=== PATIENT | female | born 1940 | race Caucasian/White ===

== ENCOUNTER → 2020-02-05 12:58 | Outpatient (REF) | payer MEDICARE, BC, SELFPAY ==
--- NOTE | 2020-02-05 13:00 | CA_ITS ---
Transthoracic Echocardiogram Patient (Last, First, Middle): Lisbeth Ruby A Gender: Female Date of : 1940 Age: 79 Procedure Date: 02/05/2020 Procedure Type: Transthoracic Echocardiogram Location: OP Height: 165.1 cm Weight: 96.16 kg BSA: 2.03 m2 Heart Rate: bpm BP: 122 / 98 mmHg City Distribution Clerk: JORGE LUIS Referring MD: Peng Lr MD Lighter: Peng Lr MD Symptoms: [facility] Study Quality: Fair ECG Rhythm: Atrial Fibrillation Conclusions: - 1. Normal LV systolic function with mild LVH 2. Moderate biatrial enlargement 3. Normal cardiac valvular Doppler 4. Normal RV systolic pressure 5. No gross pericardial effusion Findings Left Ventricle Normal left ventricular size and systolic function. There is mildly increased left ventricular wall thickness. The visually estimated ejection fraction is between 55-60%. Diastolic function is indeterminate on the basis of available data. Right Ventricle The right ventricle was not well visualized. Atria The left atrium is moderately dilated. Interatrial shunt cannot be excluded. The right atrium is moderately dilated. Aortic Valve The aortic valve was not well visualized. There is no aortic valve stenosis. There is no aortic valve regurgitation. Mitral Valve There is mild anterior and posterior mitral leaflet thickening. There is mild mitral valve regurgitation. There is no mitral valve stenosis. Pulmonic Valve The pulmonic valve was not well visualized. Tricuspid Valve Likely normal tricuspid valve structure and function. There is mild tricuspid valve regurgitation. The right ventricular systolic pressure is normal. The right ventricular systolic pressure is 33 mmHg. Normal right atrial pressure. There is no evidence of pulmonary hypertension. Great Vessels All visible segments of the aorta are normal in size. The pulmonary artery was not well visualized. Venous The inferior vena cava is normal in size and collapses greater than 50% with inspiration. Pericardium/Pleural There is no evidence of pericardial effusion. Prior Study Comparison No significant change compared to prior study dated: 08/29/2018. Measurements 2D Linear Measurements IVSd: 1.04 0.6-0.9/0.6-1.0 cm LVIDd: 4.17 3.9-5.3/4.2-5.9 cm LVIDd Index: 2.05 2.4-3.2/2.2-3.1 cm/m2 LVIDs: 2.98 2.0-3.6 cm LVPWd: 1.18 0.7-1.1 cm Ao Root: 2.80 2.1-3.5 cm LA Diam: 4.30 2.7-3.8/3.0-4.0 cm LAIDs Index: 2.12 1.5-2.3 cm/m2 LV Mass: 195.94 67-162/88-224 g LV Mass Index: 96.52 43-95/49-115 g/m2 LVOT Diam: 2.10 3.0+(-)1.3 cm Mitral Valve MV Pk E: 1.11 MV Decel Time: 100.00 E'Lateral: 11.80 E'Medial: 9.38 E/E' Med: 11.80 E/E' Lat: 9.40 PHT: 175.00 MVA PHT: 1.26 Decel [place]: 1.84 Aortic Valve AoV Pk Aristeo: 1.21 AoV Pk Grad: 6.00 LVOT LVOT Pk Aristeo: 0.83 LVOT Mn Aristeo: 0.54 LVOT VTI: 0.16 LVOT Pk Grad: 3.00 LVOT Mn Grad: 1.00 LVOT Diam: 2.10 LVOT Area: 3.46 Diastolic Function MV Pk E: 1.11 E'Medial: 9.38 E/E' Med: 11.80 E' Laterial: 11.80 E/E' Lat: 9.40 Tricuspid Valve TR Pk Aristeo: 2.76 TR Pk Grad: 30.00 RA Press: 3.00 RVSP: 33.00 Great Vessels Aorta Ao Root-2D: 2.80 2.0-3.7 cm Ao Asc: 3.60 2.1-3.4 cm Updated in Other Vendor System with Status of Final Peng Lr MD electronically signed on 02/06/2020 3:08:28 PM with status of Final
== END ==
LOC: HO.CARD 12:58
PROVIDERS: PCP Internal Medicine; Visit Provider Internal Medicine Cardiovascular Disease
DX: I11.0 Hypertensive heart disease with heart failure (principal); I50.30 Unspecified diastolic (congestive) heart failure; I48.19 Other persistent atrial fibrillation
CPT/HCPCS: 93306

== ENCOUNTER 2020-05-21 08:04 | Outpatient (REF) | payer MEDICARE, BC, SELFPAY ==
[2020-05-21 10:19] LABS: MANUAL DIFF FLAG NO
[2020-05-21 10:24] LABS: Basophils Absolute Auto 0.1 X10*3/uL (0.0-0.2); Basophils Percent Auto 0.6 % (0-2); Eosinophils Absolute Auto 0.2 X10*3/uL (0.0-0.4); Hematocrit 43.6 % (37-47); Hemoglobin 13.9 g/dl (12.0-16.0); Imm Gran Abs Auto 0.04 X10*3/uL (0.00-0.03); Imm Gran Pct Auto 0.4 % (0.0-0.4); Lymphocytes Absolute Auto 2.2 X10*3/uL (1.2-4.9); Lymphocytes Percent Auto 23.2 % (20-40); Mean Corpuscular HGB Conc 31.9 g/dl (31.0-35.0); Mean Corpuscular Hemoglobin 30.2 pg (27.0-33.0); Mean Corpuscular Volume 94.8 fL (80-98); Mean Platelet Volume 12.9 fL (9.4-12.3); Monocytes Absolute Auto 0.7 X10*3/uL (0.1-1.2); Monocytes Percent Auto 7.7 % (2-11); Neutrophils Absolute Auto 6.2 X10*3/uL (2.0-8.3); Neutrophils Percent Auto 66.1 % (45-73); Platelet Count 258 X10*3/uL (160-400); White Blood Count 9.5 X10*3/uL (4.8-10.8)
[2020-05-21 10:48] LABS: Alanine Aminotransferase 19 U/L (0-31); Albumin Level 4.1 g/dL (3.5-5.0); Alkaline Phosphatase 79 U/L (39-117); Anion Gap 14 (12-20); Aspartate Amino Transferase 18 U/L (5-31); Bilirubin Total 0.6 mg/dL (0.0-1.0); Blood Urea Nitrogen 23 mg/dL (9-16); Calcium 9.1 mg/dL (8.4-10.2); Carbon Dioxide 30 mmol/L (22-29); Chloride 102 mmol/L (96-108); Cholesterol 214 mg/dL; Estimated Glomerular Filt Rate 52; Glucose Fasting 121 mg/dL (60-99); HDL Cholesterol 71 mg/dL; LDL Cholesterol Calculated 129 mg/dl; Potassium 4.6 mmol/l (3.3-5.1); Sodium 141 mmol/L (135-145); Total Protein 6.9 g/dL (6.5-8.0); Triglycerides 70 mg/dL
[2020-05-21 10:54] LABS: Estimated Average Glucose 117 mg/dL; Hemoglobin A1c % 5.7 %
[2020-05-21 11:11] LABS: Thyroid Stimulating Hormone 1.37 uIU/mL (0.32-4.0)
== END 2020-05-21 08:05 | disposition home or self-care (01) ==
LOC: HO.10HDL 08:04
PROVIDERS: Visit Provider Internal Medicine
DX: I10 Essential (primary) hypertension (principal); I48.91 Unspecified atrial fibrillation; R73.01 Impaired fasting glucose; Z68.36 Body mass index [BMI] 36.0-36.9, adult
CPT/HCPCS: 36415; 80053; 80061; 83036; 84443; 85025

== ENCOUNTER → 2020-06-15 13:05 | Outpatient (BNVA) | payer MEDICARE, BC, SELFPAY | PROVIDERS: PCP Internal Medicine; Visit Provider Internal Medicine Cardiovascular Disease | DX: I50.32 Chronic diastolic (congestive) heart failure (principal); I48.20 Chronic atrial fibrillation, unspecified | CPT/HCPCS: Q3014 ==

== ENCOUNTER 2020-09-16 08:08 | Outpatient (REF) | payer MEDICARE, BC, SELFPAY ==
[2020-09-16 10:23] LABS: MANUAL DIFF FLAG NO
[2020-09-16 10:28] LABS: Basophils Absolute Auto 0.1 X10*3/uL (0.0-0.2); Basophils Percent Auto 0.8 % (0-2); Eosinophils Absolute Auto 0.2 X10*3/uL (0.0-0.4); Eosinophils Percent Auto 2.5 % (0-4); Hematocrit 41.2 % (37-47); Imm Gran Abs Auto 0.02 X10*3/uL (0.00-0.03); Imm Gran Pct Auto 0.3 % (0.0-0.4); Lymphocytes Absolute Auto 1.9 X10*3/uL (1.2-4.9); Lymphocytes Percent Auto 23.2 % (20-40); Mean Corpuscular HGB Conc 31.6 g/dl (31.0-35.0); Mean Corpuscular Hemoglobin 29.5 pg (27.0-33.0); Mean Corpuscular Volume 93.4 fL (80-98); Mean Platelet Volume 12.8 fL (9.4-12.3); Monocytes Absolute Auto 0.7 X10*3/uL (0.1-1.2); Monocytes Percent Auto 8.2 % (2-11); Neutrophils Absolute Auto 5.2 X10*3/uL (2.0-8.3); Platelet Count 236 X10*3/uL (160-400); Red Blood Count 4.41 X10*6/uL (4.20-5.50); Red Cell Distribution Width 14.6 % (11.0-16.0)
[2020-09-16 11:04] LABS: Estimated Average Glucose 123 mg/dL; Hemoglobin A1c % 5.9 %
[2020-09-16 11:07] LABS: Alanine Aminotransferase 23 U/L (0-31); Alkaline Phosphatase 83 U/L (39-117); Anion Gap 12 (12-20); Aspartate Amino Transferase 21 U/L (5-31); Bilirubin Total 0.6 mg/dL (0.0-1.0); Blood Urea Nitrogen 23 mg/dL (9-16); Calcium 9.5 mg/dL (8.4-10.2); Carbon Dioxide 29 mmol/L (22-29); Chloride 104 mmol/L (96-108); Estimated Glomerular Filt Rate 53; Glucose Fasting 114 mg/dL (60-99); Potassium 4.8 mmol/L (3.3-5.1); Sodium 140 mmol/L (135-145); Total Protein 6.6 g/dL (6.5-8.0)
[2020-09-16 11:08] LABS: Thyroid Stimulating Hormone 0.86 uIU/mL (0.32-4.0)
== END 2020-09-16 08:09 | disposition home or self-care (01) ==
LOC: HO.10HDL 08:08
PROVIDERS: Visit Provider Internal Medicine
DX: E78.00 Pure hypercholesterolemia, unspecified (principal); I10 Essential (primary) hypertension; I48.91 Unspecified atrial fibrillation; R73.01 Impaired fasting glucose; Z79.01 Long term (current) use of anticoagulants; Z86.010 Personal history of colon polyps
CPT/HCPCS: 36415; 80053; 83036; 84443; 85025

== ENCOUNTER → 2020-12-16 12:38 | Outpatient (REF) | payer MEDICARE, BC, SELFPAY ==
--- NOTE | 2020-12-16 12:41 | CA_ITS ---
Transthoracic Echocardiogram Patient (Last, First, Middle): Lisbeth Ruby A Gender: Female Date of : 1940 Age: 80 Procedure Date: 12/16/2020 Procedure Type: Transthoracic Echocardiogram Location: OP Height: 167.64 cm Weight: 97.52 kg BSA: 2.06 m2 Heart Rate: bpm BP: 129 / 65 mmHg New Home Sales Consultant: ASHVIN Mtz MD: Peng Lr MD Chicken Boner: Peng Lr MD Symptoms: I48.20 - Chronic atrial fibrillation, unspecified Study Quality: Fair ECG Rhythm: Atrial Fibrillation Conclusions: - 1. Low normal LV systolic function with LVEF of 50-55% 2. Moderate biatrial enlargement 3. Normal cardiac valvular Doppler next 4. Normal RV systolic pressure 5. No pericardial effusion Findings Left Ventricle Normal left ventricular cavity size. There is normal left ventricular wall thickness. The left ventricular systolic function is low normal. The visually estimated ejection fraction is between 50-55%. Diastolic function is indeterminate on the basis of available data. Right Ventricle Normal right ventricular cavity size and systolic function. Atria The left atrium is moderately dilated. Interatrial shunt cannot be excluded. The right atrium is moderately dilated. Aortic Valve There is mild calcification of the aortic valve. There is no aortic valve stenosis. There is no aortic valve regurgitation. Mitral Valve There is mild anterior mitral leaflet thickening. There is trace mitral valve regurgitation. There is no mitral valve stenosis. Pulmonic Valve The pulmonic valve was not well visualized. Tricuspid Valve Likely normal tricuspid valve structure and function. There is mild tricuspid valve regurgitation. The right ventricular systolic pressure is normal. The right ventricular systolic pressure is 31 mmHg. Normal right atrial pressure. There is no evidence of pulmonary hypertension. Great Vessels All visible segments of the aorta are normal in size. The pulmonary artery was not well visualized. Venous The inferior vena cava is normal in size and collapses greater than 50% with inspiration. Pericardium/Pleural There is no evidence of pericardial effusion. Prior Study Comparison Changes noted compared to prior study dated: 02/05/2020. LV systolic function appears marginally reduced Measurements 2D Linear Measurements IVSd: 0.93 0.6-0.9/0.6-1.0 cm LVIDd: 4.70 3.9-5.3/4.2-5.9 cm LVIDd Index: 2.28 2.4-3.2/2.2-3.1 cm/m2 LVIDs: 3.28 2.0-3.6 cm LVPWd: 1.00 0.7-1.1 cm Ao Root: 3.50 2.1-3.5 cm LA Diam: 4.30 2.7-3.8/3.0-4.0 cm LAIDs Index: 2.09 1.5-2.3 cm/m2 LV Mass: 194.98 67-162/88-224 g LV Mass Index: 94.65 43-95/49-115 g/m2 LVOT Diam: 2.10 3.0+(-)1.3 cm 2D Systolic Function EF 4C: 49.20 >55% EF 2C: 48.30 >55% Aortic Valve AoV Pk Aristeo: 1.31 AoV Mn Aristeo: 0.81 AoV VTI: 0.24 AoV Pk Grad: 7.00 Aov Mn Grad: 3.00 ROXANN Cont.VTI: 2.39 LVOT LVOT Pk Aristeo: 0.78 LVOT Mn Aristeo: 0.59 LVOT VTI: 0.17 LVOT Pk Grad: 2.00 LVOT Mn Grad: 2.00 LVOT Diam: 2.10 LVOT Area: 3.46 Right Ventricle TAPSE (mm): 2.04 Tricuspid Valve TR Pk Aristeo: 2.38 TR Pk Grad: 23.00 RA Press: 8.00 RVSP: 31.00 Great Vessels Aorta Ao Root-2D: 3.50 2.0-3.7 cm Ao Asc: 3.60 2.1-3.4 cm Ao Arch: 2.30 Updated in Other Vendor System with Status of Final Peng Lr MD electronically signed on 12/17/2020 1:01:45 PM with status of Final
== END ==
LOC: HO.CARD 12:38
PROVIDERS: PCP Internal Medicine; Visit Provider Internal Medicine Cardiovascular Disease
DX: I10 Essential (primary) hypertension (principal); I48.20 Chronic atrial fibrillation, unspecified; I50.32 Chronic diastolic (congestive) heart failure
CPT/HCPCS: 93306

== ENCOUNTER → 2021-01-04 12:24 | Outpatient (BNVA) | payer MEDICARE, BC, SELFPAY | PROVIDERS: PCP Internal Medicine; Visit Provider Internal Medicine Cardiovascular Disease | DX: I50.32 Chronic diastolic (congestive) heart failure (principal); I48.20 Chronic atrial fibrillation, unspecified | CPT/HCPCS: 93005; 99212 ==

== ENCOUNTER 2021-01-14 07:43 | Outpatient (REF) | payer MEDICARE, BC, SELFPAY ==
[2021-01-14 10:27] LABS: MANUAL DIFF FLAG NO
[2021-01-14 10:39] LABS: Basophils Absolute Auto 0.1 X10*3/uL (0.0-0.2); Basophils Percent Auto 0.6 % (0-2); Eosinophils Absolute Auto 0.3 X10*3/uL (0.0-0.4); Eosinophils Percent Auto 3.3 % (0-4); Hematocrit 41.3 % (37-47); Hemoglobin 13.4 g/dl (12.0-16.0); Imm Gran Abs Auto 0.02 X10*3/uL (0.00-0.03); Imm Gran Pct Auto 0.2 % (0.0-0.4); Lymphocytes Absolute Auto 1.7 X10*3/uL (1.2-4.9); Lymphocytes Percent Auto 18.3 % (20-40); Mean Corpuscular HGB Conc 32.4 g/dl (31.0-35.0); Mean Corpuscular Volume 92.6 fL (80-98); Mean Platelet Volume 12.9 fL (9.4-12.3); Monocytes Absolute Auto 0.9 X10*3/uL (0.1-1.2); Monocytes Percent Auto 9.7 % (2-11); Neutrophils Absolute Auto 6.5 X10*3/uL (2.0-8.3); Neutrophils Percent Auto 67.9 % (45-73); Platelet Count 239 X10*3/uL (160-400); Red Blood Count 4.46 X10*6/uL (4.20-5.50); Red Cell Distribution Width 14.7 % (11.0-16.0); White Blood Count 9.5 X10*3/uL (4.8-10.8)
[2021-01-14 11:02] LABS: Alanine Aminotransferase 17 U/L (0-31); Albumin Level 4.1 g/dL (3.5-5.0); Alkaline Phosphatase 78 U/L (39-117); Anion Gap 14 (12-20); Aspartate Amino Transferase 18 U/L (5-31); Blood Urea Nitrogen 19 mg/dL (9-16); Calcium 9.5 mg/dL (8.4-10.2); Carbon Dioxide 29 mmol/L (22-29); Chloride 103 mmol/L (96-108); Estimated Glomerular Filt Rate 54; Glucose Fasting 120 mg/dL (60-99); Potassium 4.5 mmol/L (3.3-5.1); Sodium 141 mmol/L (135-145)
== END 2021-01-14 07:44 | disposition home or self-care (01) ==
LOC: HO.10HDL 07:43
PROVIDERS: Visit Provider Internal Medicine
DX: I10 Essential (primary) hypertension (principal); I48.19 Other persistent atrial fibrillation; Z79.01 Long term (current) use of anticoagulants
CPT/HCPCS: 36415; 80053; 85025

== ENCOUNTER 2021-05-25 07:45 | Outpatient (REF) | payer MEDICARE, BC, SELFPAY ==
[2021-05-25 10:05] LABS: MANUAL DIFF FLAG NO
[2021-05-25 10:08] LABS: Basophils Absolute Auto 0.1 X10*3/uL (0.0-0.2); Basophils Percent Auto 0.8 % (0-2); Eosinophils Absolute Auto 0.2 X10*3/uL (0.0-0.4); Eosinophils Percent Auto 1.9 % (0-4); Hematocrit 42.1 % (37.0-47.0); Hemoglobin 13.3 g/dl (12.0-16.0); Imm Gran Abs Auto 0.03 X10*3/uL (0.00-0.03); Imm Gran Pct Auto 0.3 % (0.0-0.4); Lymphocytes Absolute Auto 1.9 X10*3/uL (1.2-4.9); Lymphocytes Percent Auto 19.9 % (20-40); Mean Corpuscular HGB Conc 31.6 g/dl (31.0-35.0); Mean Corpuscular Hemoglobin 30.2 pg (27.0-33.0); Mean Corpuscular Volume 95.5 fL (80.0-98.0); Mean Platelet Volume 12.9 fL (9.4-12.3); Monocytes Absolute Auto 0.9 X10*3/uL (0.1-1.2); Monocytes Percent Auto 8.7 % (2-11); Neutrophils Absolute Auto 6.7 x10*3/uL (2.0-8.3); Neutrophils Percent Auto 68.4 % (45-73); Platelet Count 242 X10*3/uL (160-400); Red Blood Count 4.41 X10*6/uL (4.20-5.50); Red Cell Distribution Width 14.3 % (11.0-16.0); White Blood Count 9.8 X10*3/uL (4.8-10.8)
[2021-05-25 10:47] LABS: Alanine Aminotransferase 17 U/L (0-31); Alkaline Phosphatase 81 U/L (39-117); Anion Gap 15 (12-20); Aspartate Amino Transferase 22 U/L (5-31); Bilirubin Total 0.6 mg/dL (0.0-1.0); Blood Urea Nitrogen 23 mg/dL (9-16); Calcium 9.2 mg/dL (8.4-10.2); Carbon Dioxide 27 mmol/L (22-29); Chloride 104 mmol/L (96-108); Cholesterol 197 mg/dL; Estimated Glomerular Filt Rate 50; Glucose Fasting 120 mg/dL (60-99); HDL Cholesterol 68 mg/dL; LDL Cholesterol Calculated 115 mg/dl; Potassium 4.6 mmol/L (3.3-5.1); Sodium 141 mmol/L (135-145); Total Protein 6.9 g/dL (6.5-8.0); Triglycerides 73 mg/dL
[2021-05-25 10:55] LABS: Estimated Average Glucose 123 mg/dL; Hemoglobin A1c % 5.9 %
[2021-05-25 11:09] LABS: Thyroid Stimulating Hormone 1.28 uIU/mL (0.32-4.0)
== END 2021-05-25 07:46 | disposition home or self-care (01) ==
LOC: HO.10HDL 07:45
PROVIDERS: Visit Provider Internal Medicine
DX: I10 Essential (primary) hypertension (principal); I48.19 Other persistent atrial fibrillation; R73.01 Impaired fasting glucose; Z79.01 Long term (current) use of anticoagulants
CPT/HCPCS: 36415; 80053; 80061; 83036; 84443; 85025

== ENCOUNTER → 2021-07-05 12:36 | Outpatient (BNVA) | payer MEDICARE, BC, SELFPAY | PROVIDERS: PCP Internal Medicine; Referring Provider Internal Medicine; Visit Provider Internal Medicine Cardiovascular Disease | DX: I48.20 Chronic atrial fibrillation, unspecified (principal); I50.32 Chronic diastolic (congestive) heart failure; Z79.01 Long term (current) use of anticoagulants; Z79.899 Other long term (current) drug therapy | CPT/HCPCS: 99212 ==

== ENCOUNTER 2021-08-11 13:26 | Outpatient (REF) | payer MEDICARE, BC, SELFPAY ==
--- NOTE | 2021-08-11 15:53 | PFT_ITS ---
INDICATION: Shortness of breath. SPIROMETRY: FEV1 to FVC of 73% post bronchodilators and 70% pre bronchodilators with an FEV1 of 1.24 L, which is 62% predicted, and FVC of 1.7 L, which is 64% predicted. No significant response to bronchodilators. To note the [id number] decreased to 54% predicted pre bronchodilators. The maximum voluntary ventilation 62% predicted. LUNG VOLUMES: Total lung capacity 62% predicted with an expiratory reserve volume of 55% predicted. DIFFUSION CAPACITY: DLCO 42% predicted, it does correct to a 68% when correcting for the alveolar volume. COMPARISONS: None. INTERPRETATION: There appears to be reversible obstructive ventilatory defect. Therefore, need to consider a diagnosis of asthma and/or asthma COPD overlap syndrome. The patient also has jyix-wr-gyytzyei decrease in the maximum voluntary ventilation secondary to likely deconditioning. In addition to that, there is a moderate restrictive ventilatory defect consistent with restrictive lung disease that needs to be further evaluated. Probably could be due to the elevated BMI. The patient also has a ehvgqovt-pd-avsxxz diffusion impairment as well, which could be secondary to the above findings in addition to underlying pulmonary vascular conditions specially with the elevated heart rate. Based on the patient's abnormal pulmonary function studies, she may benefit from a pulmonary referral. MD MANUELA Rodríguez/TAMANNA / [phone]
== END 2021-08-11 13:27 | disposition home or self-care (01) ==
LOC: HO.RESP 13:26
PROVIDERS: PCP Internal Medicine; Visit Provider Internal Medicine Cardiovascular Disease
DX: R06.02 Shortness of breath (principal)
CPT/HCPCS: 94060; 94727; 94729

== ENCOUNTER 2021-09-13 07:42 | Outpatient (REF) | payer MEDICARE, BC, SELFPAY ==
[2021-09-13 08:15] LABS: MANUAL DIFF FLAG NO
[2021-09-13 08:54] LABS: Basophils Absolute Auto 0.1 X10*3/uL (0.0-0.2); Basophils Percent Auto 0.8 % (0-2); Eosinophils Absolute Auto 0.2 X10*3/uL (0.0-0.4); Eosinophils Percent Auto 2.3 % (0-4); Imm Gran Abs Auto 0.02 X10*3/uL (0.00-0.03); Imm Gran Pct Auto 0.2 % (0.0-0.4); Lymphocytes Absolute Auto 1.7 X10*3/uL (1.2-4.9); Lymphocytes Percent Auto 19.3 % (20-40); Mean Corpuscular HGB Conc 31.7 g/dl (31.0-35.0); Mean Corpuscular Hemoglobin 29.7 pg (27.0-33.0); Mean Corpuscular Volume 93.8 fL (80.0-98.0); Mean Platelet Volume 12.5 fL (9.4-12.3); Monocytes Absolute Auto 0.7 X10*3/uL (0.1-1.2); Monocytes Percent Auto 7.8 % (2-11); Neutrophils Absolute Auto 6.1 x10*3/uL (2.0-8.3); Neutrophils Percent Auto 69.6 % (45-73); Platelet Count 224 X10*3/uL (160-400); Red Blood Count 4.37 X10*6/uL (4.20-5.50); Red Cell Distribution Width 14.6 % (11.0-16.0); White Blood Count 8.7 X10*3/uL (4.8-10.8)
[2021-09-13 09:03] LABS: Estimated Average Glucose 128 mg/dL; Hemoglobin A1c % 6.1 %
[2021-09-13 09:30] LABS: Alanine Aminotransferase 18 U/L (0-31); Alkaline Phosphatase 78 U/L (39-117); Anion Gap 14 (12-20); Aspartate Amino Transferase 19 U/L (5-31); Bilirubin Total 0.8 mg/dL (0.0-1.0); Blood Urea Nitrogen 19 mg/dL (9-16); Calcium 9.5 mg/dL (8.4-10.2); Carbon Dioxide 27 mmol/L (22-29); Chloride 104 mmol/L (96-108); Estimated Glomerular Filt Rate 56; Glucose Random 125 mg/dL (60-115); Potassium 4.6 mmol/L (3.3-5.1); Sodium 140 mmol/L (135-145)
== END 2021-09-13 07:43 | disposition home or self-care (01) ==
LOC: HO.LAB 07:42
PROVIDERS: PCP Internal Medicine; Visit Provider Internal Medicine
DX: I48.91 Unspecified atrial fibrillation (principal); I12.9 Hypertensive chronic kidney disease with stage 1 through stage 4 chronic kidney disease, or unspecified chronic kidney disease; N18.9 Chronic kidney disease, unspecified; R73.01 Impaired fasting glucose
CPT/HCPCS: 36415; 80053; 83036; 85025

== ENCOUNTER 2021-09-20 14:27 | Outpatient (REF) | payer MEDICARE, BC, SELFPAY ==
--- NOTE | ~2021-09-20 | XR_ITS ---
EXAMINATION: XR CHEST CLINICAL INFORMATION: Disorders of lung COMPARISON: 11/11/2018 TECHNIQUE: 2 views of the chest were obtained. FINDINGS: Normal symmetric lung volumes. No parenchymal consolidation. No pleural effusion. No pneumothorax. Borderline prominence of the cardiac silhouette. Pulmonary venous congestion without overt edema. Aorta is atherosclerotic.. No acute osseous abnormalities. XR/XR chest 2V IMPRESSION: No acute findings.
== END 2021-09-20 14:28 | disposition home or self-care (01) ==
LOC: HO.XRAY 14:27
PROVIDERS: PCP Internal Medicine; Visit Provider Internal Medicine
DX: R06.00 Dyspnea, unspecified (principal); J98.4 Other disorders of lung
CPT/HCPCS: 71046; 99202

== ENCOUNTER → 2021-11-08 12:43 | Outpatient (BNVA) | payer MEDICARE, BC, SELFPAY | PROVIDERS: PCP Internal Medicine; Visit Provider Internal Medicine | DX: J98.4 Other disorders of lung (principal); J44.9 Chronic obstructive pulmonary disease, unspecified | CPT/HCPCS: 99212 ==

== ENCOUNTER → 2021-12-28 11:04 | Outpatient (REF) | payer MEDICARE, BC, SELFPAY ==
--- NOTE | 2021-12-28 11:06 | CA_ITS ---
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 The calculated ejection fraction is 58% by biplane method. - Moderate biatrial enlargement. - No obvious valvular pathology seen on this study. - Mild pulmonary hypertension is present. Findings Left Ventricle Normal left ventricular cavity size. There is mildly increased left ventricular wall thickness. The left ventricular systolic function is normal. The calculated ejection fraction is 58% by biplane method. Diastolic function is indeterminate on the basis of available data. Right Ventricle Normal right ventricular cavity size and systolic function. Atria Moderate biatrial enlargement. Aortic Valve There is a normal trileaflet aortic valve. There is mild calcification of the aortic valve. There is no aortic valve stenosis. There is no aortic valve regurgitation. Mitral Valve The mitral valve appears normal. There is mild mitral annular calcification. There is trace mitral valve regurgitation. There is no mitral valve stenosis. Pulmonic Valve The pulmonic valve is likely normal. Tricuspid Valve There is mild tricuspid valve regurgitation. The right ventricular systolic pressure is 39 mmHg. Mild pulmonary hypertension is present. Great Vessels The asc aorta is normal in size. Venous The inferior vena cava is normal in size and collapses greater than 50% with inspiration. Pericardium/Pleural There is no evidence of pericardial effusion. Prior Study Comparison No significant change compared to prior study dated: 12/16/2020. Recommendations, Care & Conclusions No obvious valvular pathology seen on this study. Measurements 2D Linear Measurements IVSd: 1.05 0.6-0.9/0.6-1.0 cm LVIDd: 5.16 3.9-5.3/4.2-5.9 cm LVIDd Index: 2.50 2.4-3.2/2.2-3.1 cm/m2 LVIDs: 3.43 2.0-3.6 cm LVPWd: 1.13 0.7-1.1 cm Ao Root: 3.10 2.1-3.5 cm LA Diam: 4.80 2.7-3.8/3.0-4.0 cm LAIDs Index: 2.33 1.5-2.3 cm/m2 LV Mass: 268.38 67-162/88-224 g LV Mass Index: 130.28 43-95/49-115 g/m2 LVOT Diam: 2.00 3.0+(-)1.3 cm 2D Systolic Function EF 4C: 56.80 >55% EF 2C: 58.10 >55% EF BiP: 57.50 >55% Mitral Valve MV Pk E: 1.00 MV Decel Time: 198.00 E'Lateral: 11.50 E'Medial: 6.74 E/E' Med: 14.80 E/E' Lat: 8.70 PHT: 58.00 MVA PHT: 3.79 Decel [place]: 5.06 Aortic Valve AoV Pk Aristeo: 1.31 AoV Mn Aristeo: 0.90 AoV VTI: 0.29 AoV Pk Grad: 7.00 Aov Mn Grad: 4.00 ROXANN Cont.VTI: 1.89 LVOT LVOT Pk Aristeo: 0.82 LVOT Mn Aristeo: 0.54 LVOT VTI: 0.18 LVOT Pk Grad: 3.00 LVOT Mn Grad: 1.00 LVOT Diam: 2.00 LVOT Area: 3.14 Diastolic Function MV Pk E: 1.00 E'Medial: 6.74 E/E' Med: 14.80 E' Laterial: 11.50 E/E' Lat: 8.70 Right Ventricle TAPSE (mm): 24.00 TVS' Aristeo: 10.00 Tricuspid Valve TR Pk Aristeo: 2.98 TR Pk Grad: 36.00 RA Press: 3.00 RVSP: 39.00 Great Vessels Aorta Ao Root-2D: 3.10 2.0-3.7 cm Ao Asc: 3.50 2.1-3.4 cm Pulmonary Valve PV Pk Aristeo: 0.81 Peak PV Grad: 3.00 Updated in Other Vendor System with Status of Final Mauro Spain MD electronically signed on 12/29/2021 4:18:52 PM with status of Final
== END ==
LOC: HO.CARD 11:04
PROVIDERS: Visit Provider Internal Medicine Cardiovascular Disease
DX: I50.32 Chronic diastolic (congestive) heart failure (principal)
CPT/HCPCS: 93306

== ENCOUNTER → 2022-01-10 12:01 | Outpatient (BNVA) | payer MEDICARE, BC, SELFPAY | PROVIDERS: PCP Internal Medicine; Referring Provider Internal Medicine; Visit Provider Internal Medicine Cardiovascular Disease | DX: I48.20 Chronic atrial fibrillation, unspecified (principal); I50.32 Chronic diastolic (congestive) heart failure | CPT/HCPCS: 93005; 99212 ==

== ENCOUNTER 2022-01-16 07:45 | Outpatient (REF) | payer MEDICARE, BC, SELFPAY ==
[2022-01-16 08:33] LABS: MANUAL DIFF FLAG NO
[2022-01-16 08:37] LABS: Basophils Absolute Auto 0.1 X10*3/uL (0.0-0.2); Basophils Percent Auto 0.9 % (0-2); Eosinophils Absolute Auto 0.4 X10*3/uL (0.0-0.4); Eosinophils Percent Auto 3.2 % (0-4); Hematocrit 43.2 % (37.0-47.0); Imm Gran Abs Auto 0.03 X10*3/uL (0.00-0.03); Imm Gran Pct Auto 0.3 % (0.0-0.4); Lymphocytes Absolute Auto 2.1 X10*3/uL (1.2-4.9); Lymphocytes Percent Auto 19.3 % (20-40); Mean Corpuscular HGB Conc 32.4 g/dl (31.0-35.0); Mean Corpuscular Hemoglobin 30.4 pg (27.0-33.0); Mean Corpuscular Volume 93.9 fL (80.0-98.0); Mean Platelet Volume 12.2 fL (9.4-12.3); Monocytes Percent Auto 8.7 % (2-11); Neutrophils Absolute Auto 7.4 x10*3/uL (2.0-8.3); Neutrophils Percent Auto 67.6 % (45-73); Platelet Count 267 X10*3/uL (160-400); Red Cell Distribution Width 14.5 % (11.0-16.0)
[2022-01-16 09:00] LABS: Estimated Average Glucose 120 mg/dL; Hemoglobin A1c % 5.8 %
[2022-01-16 09:17] LABS: Alanine Aminotransferase 19 U/L (0-31); Albumin Level 4.2 g/dL (3.5-5.0); Alkaline Phosphatase 86 U/L (39-117); Anion Gap 15 (12-20); Aspartate Amino Transferase 20 U/L (5-31); Bilirubin Total 0.8 mg/dL (0.0-1.0); Blood Urea Nitrogen 22 mg/dL (9-16); Calcium 9.3 mg/dL (8.4-10.2); Carbon Dioxide 26 mmol/L (22-29); Chloride 104 mmol/L (96-108); Estimated Glomerular Filt Rate 50; Glucose Random 115 mg/dL (60-115); Potassium 4.1 mmol/L (3.3-5.1); Sodium 141 mmol/L (135-145); Total Protein 7.2 g/dL (6.5-8.0)
== END 2022-01-16 07:46 | disposition home or self-care (01) ==
LOC: HO.10HDL 07:45
PROVIDERS: Visit Provider Internal Medicine
DX: I12.9 Hypertensive chronic kidney disease with stage 1 through stage 4 chronic kidney disease, or unspecified chronic kidney disease (principal); N18.9 Chronic kidney disease, unspecified; I48.91 Unspecified atrial fibrillation; R06.02 Shortness of breath; R73.01 Impaired fasting glucose; Z79.01 Long term (current) use of anticoagulants
CPT/HCPCS: 36415; 80053; 83036; 85025

== ENCOUNTER → 2022-01-31 14:25 | Outpatient (REF) | payer MEDICARE, BC, SELFPAY ==
--- NOTE | 2022-01-31 14:29 | HM_ITS ---
* Total monitoring time 3 days. * Underlying rhythm is atrial fibrillation. * Average rate 86/Min. Range 70 to 136/Min. About 2.5% the time, rate > 100/Min. No significant bradycardia. No pauses. * Overall, atrial fibrillation with reasonable rate control and occasional rapid rates. * No patient events documented. MTDD
== END ==
LOC: HO.CARD 14:25
PROVIDERS: Visit Provider Internal Medicine Cardiovascular Disease
DX: I48.20 Chronic atrial fibrillation, unspecified (principal)
CPT/HCPCS: 93242

== ENCOUNTER → 2022-05-15 12:58 | Outpatient (BNVA) | payer MEDICARE, BC, SELFPAY | PROVIDERS: PCP Internal Medicine; Visit Provider Internal Medicine | DX: J44.9 Chronic obstructive pulmonary disease, unspecified (principal); J98.4 Other disorders of lung | CPT/HCPCS: 99212 ==

== ENCOUNTER 2022-07-13 07:54 | Outpatient (REF) | payer MEDICARE, BC, SELFPAY ==
[2022-07-13 10:46] LABS: MANUAL DIFF FLAG NO
[2022-07-13 11:07] LABS: Basophils Absolute Auto 0.1 X10*3/uL (0.0-0.2); Basophils Percent Auto 0.8 % (0-2); Eosinophils Absolute Auto 0.2 X10*3/uL (0.0-0.4); Eosinophils Percent Auto 2.4 % (0-4); Hematocrit 41.6 % (37.0-47.0); Hemoglobin 13.3 g/dl (12.0-16.0); Imm Gran Abs Auto 0.03 X10*3/uL (0.00-0.03); Imm Gran Pct Auto 0.3 % (0.0-0.4); Lymphocytes Absolute Auto 1.6 X10*3/uL (1.2-4.9); Lymphocytes Percent Auto 17.4 % (20-40); Mean Corpuscular Hemoglobin 30.2 pg (27.0-33.0); Mean Corpuscular Volume 94.5 fL (80.0-98.0); Mean Platelet Volume 12.7 fL (9.4-12.3); Monocytes Absolute Auto 0.8 X10*3/uL (0.1-1.2); Monocytes Percent Auto 9.1 % (2-11); Neutrophils Absolute Auto 6.5 x10*3/uL (2.0-8.3); Platelet Count 237 X10*3/uL (160-400); Red Cell Distribution Width 14.6 % (11.0-16.0); White Blood Count 9.3 X10*3/uL (4.8-10.8)
[2022-07-13 11:16] LABS: Alanine Aminotransferase 18 U/L (0-31); Alkaline Phosphatase 74 U/L (39-117); Anion Gap 11 (12-20); Aspartate Amino Transferase 20 U/L (5-31); Blood Urea Nitrogen 21 mg/dL (9-16); Calcium 8.7 mg/dL (8.4-10.2); Carbon Dioxide 29 mmol/L (22-29); Chloride 104 mmol/L (96-108); Cholesterol 186 mg/dL; Estimated Glomerular Filt Rate 56; Glucose Fasting 112 mg/dL (60-99); HDL Cholesterol 61 mg/dL; LDL Cholesterol Calculated 112 mg/dl; Potassium 4.2 mmol/L (3.3-5.1); Sodium 140 mmol/L (135-145); Total Protein 6.6 g/dL (6.5-8.0); Triglycerides 66 mg/dL
[2022-07-13 11:34] LABS: Thyroid Stimulating Hormone 1.61 uIU/mL (0.32-4.0); Vitamin D 25-OH Total 39.1 ng/mL (>30)
== END 2022-07-13 07:55 | disposition home or self-care (01) ==
LOC: HO.10HDL 07:54
PROVIDERS: Visit Provider Internal Medicine
DX: E66.9 Obesity, unspecified (principal); I48.91 Unspecified atrial fibrillation; I12.9 Hypertensive chronic kidney disease with stage 1 through stage 4 chronic kidney disease, or unspecified chronic kidney disease; N18.9 Chronic kidney disease, unspecified
CPT/HCPCS: 36415; 80053; 80061; 82306; 84443; 85025

== ENCOUNTER → 2022-07-25 12:10 | Outpatient (BNVA) | payer MEDICARE, BC, SELFPAY | PROVIDERS: PCP Internal Medicine; Referring Provider Internal Medicine; Visit Provider Internal Medicine Cardiovascular Disease | DX: I48.20 Chronic atrial fibrillation, unspecified (principal); I50.32 Chronic diastolic (congestive) heart failure; Z79.01 Long term (current) use of anticoagulants | CPT/HCPCS: 99212 ==

== ENCOUNTER → 2022-09-11 09:44 | Outpatient (REF) | payer MEDICARE, BC, SELFPAY ==
--- NOTE | ~2022-09-11 | NM_ITS ---
EXAMINATION: TC-PYP CARDIAC STUDY CLINICAL INFORMATION: Evaluation for cardiac amyloidosis. 82 years old Female with diastolic congestive heart failure. COMPARISON No previous study is available for comparison. TECHNIQUE: 25 mCi of Tc-99m pyrophosphate was injected intravenously. Planar images of the chest were obtained in the anterior and left lateral views at 3 hours. SPECT-CT images of the chest were also obtained. FINDINGS: The planar images show mildly increased activity in the cardiac region, slightly less intense than the adjacent rib activity. This is classified as a grade 1 activity on the planar images. The calculated heart to contralateral lung ratio is 1.0 on the 3 hour images. The SPECT images show only weak activity in the cardiac region and this appears to be predominantly in the blood pool rather than in the myocardium. NM/NM TC PYP cardiac amyloidosis IMPRESSION: 1. These findings are not suggestive of Transthyretin Cardiac Amyloidosis. 2. Please note that the Tc-99m PYP is more sensitive in detecting transthyretin-related cardiac amyloidosis than that of light-chain cardiac amyloidosis. Semi-quantitative visual scoring of the cardiac uptake is performed as follows: 0 = absent cardiac uptake and intense bone uptake 1 = mild cardiac uptake < bone uptake 2 = moderate cardia uptake = bone uptake 3 = high cardiac uptake > bone uptake
== END ==
LOC: HO.NUCMED 09:44
PROVIDERS: PCP Internal Medicine; Visit Provider Internal Medicine Cardiovascular Disease
DX: I50.30 Unspecified diastolic (congestive) heart failure (principal); I50.32 Chronic diastolic (congestive) heart failure
CPT/HCPCS: 78803; A9538

== ENCOUNTER 2022-11-14 13:13 | Outpatient (AMB) | payer MEDICARE, BC, SELFPAY ==
--- NOTE | 2022-11-14 13:30 | MHC.OFFVIS ---
Intake Vital Signs 11/14/22 13:31 Height 5 ft 6 in BP 120/88 Blood Pressure Location Lt brachial Position Sitting Pulse 95 Pulse Source Pulse Oximeter Pulse Oximetry (%) 93 Oxygen Delivery Method Room Air Intake Visit Reasons: Dyspnea Intake Note: pt is here for follow up and states she is doing well, at baseline. Auto Overhauler Required: No Allergies No Known Allergies [No Known Allergies*] Allergy (Unverified 11/14/22 13:44) Medication List - Last Reconciled 11/14/22 by Jung Portillo MD apixaban 5 mg PO BID diltiazem HCl 240 mg PO DAILY fluticasone propion-salmeterol 250-50 mcg/dose (Wixela Inhub) 1 ea PO BID furosemide 20 mg PO .prn PRN loratadine 10 mg PO DAILY PRN metoprolol succinate ER (Toprol XL) 100 mg PO DAILY 30 days knraynajzzue-gysy-bfgzz acid 18-400 mg-mcg (Centrum Women) 1 tab PO DAILY omega 6-bru-aqg-fish oil 60-90-500 mg (Fish Oil) 1 cap PO DAILY potassium chloride ER 10 mEq PO Q OTHER DAY PRN zolpidem 5 mg PO BEDTIME PRN Do you need a note to return to daycare/school/sports/work: No HPI Dyspnea HPI Details 82 years old very pleasant female is here for 6 months follow-up. Breathing has been very stable, without any acute exacerbation. She does get short of breath if she walks fast or climbs stairs but not at level ground. .Denies any wheezing He just uses Wixela 250-50 1 inhalation b.i.d. does not have any rescue inhaler on hand. Luckily she has had no chest infection in the last 6 months. She has chronic sleep problem, and does need Ambien 5 mg once in a while. [facility] Medical History Asthma with COPD Chronic atrial fibrillation Chronic heart failure with preserved ejection fraction (HFpEF) Dyspnea on exertion HTN (hypertension) Restrictive lung disease Family History Father CVD (cerebrovascular disease) Mother No problems noted. Social History (Reviewed 11/14/22 @ 13:35 by Mohini Rothman [facility]) Patient Tobacco Use Status: Former Tobacco user Review of Systems Const All systems reviewed & are unremarkable except as noted in HPI and below Eyes Reports no additional complaints ENT Reports nasal congestion (Mild off and on) Card Denies chest pain, Reports irregular heart rhythm, Denies leg edema and Reports dyspnea on exertion Resp Reports as per HPI and Reports dyspnea on exertion GI Reports no additional complaints Reports no additional complaints Musc Reports no additional complaints Skin/Breast Reports system reviewed and no additional complaints, except as documented Neuro Reports no additional complaints Psych Reports no additional complaints Physical Exam Vital Signs: Last Vital Signs Pulse 95 11/14/22 13:31 BP 120/88 11/14/22 13:31 Pulse Ox 93 11/14/22 13:31 Oxygen Delivery Method Room Air 11/14/22 13:31 Const General: comfortable, no acute distress, alert and awake Orientation/consciousness: patient oriented x3 HEENT Head: Yes normal to inspection General nose exam: No nasal polyps present and No nasal discharge present Face and sinus: Yes sinuses nontender Mouth: oropharynx normal Throat: Yes posterior oropharynx normal Eyes General: appearance normal, both eyes and all related structures Neck Neck: Yes normal visual inspection, Yes no lymphadenopathy, Yes trachea midline and Yes no JVD Thyroid: Thyroid normal Chest Chest palpation & inspection: normal inspection of the chest, normal palpation of entire chest wall and no tenderness Resp Other: Percussion note is resonant, breath sounds are diminished on both sides especially over the basilar areas. No crepitations or wheezes are heard. Cardio Palpation: normal PMI Rate: regular rate Rhythm: abnormal rhythm (Atrial fibrillation) Heart sounds: no gallops and no murmurs GI Palpation (GI): Soft to palpation, nontender, No hepatosplenomegaly present, no masses and Other GI palpation findings present (Abdomen slightly obese and protuberant) Auscultation: normal bowel sounds Back/Spine/Pelvis Thoracic/Lumbar Spine: thoracic and lumbar spine normal to inspection Skin General skin exam: no rashes or lesions noted Neuro General: patient oriented x3 and no focal motor deficits Cranial nerves: Yes CN's II-XII intact bilaterally Extrem General: Yes normal to inspection, Yes no calf tenderness and Yes edema (Mild pitting in the by of the left leg) Psych Appearance: grossly normal and well kempt Speech and movement: Normal speech and movement present Assessment & Plan Assessment & Plan (1) Asthma with COPD: Comment: Known to have Mild obstructive airway disorder, ( Asthma/Copd Overlap syndrome ) Stable , on current Med. [place]: Wixela 250-50 1 or 2 inhalation daily , Albuterol HFA 2 puffs q 4-6 Hrs only PRN Code(s): J44.9 - Chronic obstructive pulmonary disease, unspecified (2) Restrictive lung disease: Comment: Explained the patient about her restrictive disorder, most likely due to obesity. TX : Try to lose some weight, even one lb less will be okay. Do deep breathing exercises at least 3 times a day. Code(s): J98.4 - Other disorders of lung Coding Level of Care Code Est Pt Level 3 (56210) Diagnoses Asthma with COPD J44.9 Restrictive lung disease J98.4
[2022-11-14 13:31] VITALS: BP 120/88; PULSE 95; O2SAT 93
== END 2022-11-14 13:46 | disposition home or self-care (01) ==
PROVIDERS: PCP Internal Medicine; Visit Provider Internal Medicine
DX: J44.9 Chronic obstructive pulmonary disease, unspecified (principal); J98.4 Other disorders of lung
CPT/HCPCS: 99213

== ENCOUNTER → 2022-11-14 13:13 | Outpatient (BNVA) | payer MEDICARE, BC, SELFPAY | PROVIDERS: PCP Internal Medicine; Visit Provider Internal Medicine | DX: J44.9 Chronic obstructive pulmonary disease, unspecified (principal); J98.4 Other disorders of lung | CPT/HCPCS: 99212 ==

== ENCOUNTER → 2023-01-10 12:35 | Outpatient (REF) | payer MEDICARE, BC, SELFPAY ==
--- NOTE | 2023-01-10 12:38 | CA_ITS ---
Transthoracic Echocardiogram Patient (Last, First, Middle): Lisbeth Ruby A Gender: Female Date of : 1940 Age: 82 Procedure Date: 01/10/2023 Procedure Type: Transthoracic Echocardiogram Location: OP Height: 167.64 cm Weight: 95.26 kg BSA: 2.04 m2 Heart Rate: bpm BP: 150 / 100 mmHg Assembly Department Supervisor: TO Referring MD: Peng Lr MD Manager Hospice: Peng Lr MD Symptoms: I50.32 - Chronic diastolic (congestive) heart failure Study Quality: Fair ECG Rhythm: Atrial Fibrillation Conclusions: - 1. Normal LV ejection fraction with mild LVH with calculated LVEF of 55-60% with elevated filling pressures 2. Moderate left atrial enlargement 3. Mild mitral regurgitation 4. Mildly elevated right ventricular systolic pressure and right atrial pressures 5. Trivial pericardial effusion Findings Left Ventricle Normal left ventricular size and systolic function. There is mildly increased left ventricular wall thickness. The visually estimated ejection fraction is between 55-60%. Elevated filling pressures. E/E prime ratio is >15, consistent with elevated filling pressures. Right Ventricle Normal right ventricular cavity size and systolic function. Atria The left atrium is moderately dilated. Interatrial shunt cannot be excluded. The right atrium is moderately dilated. Aortic Valve Normal aortic valve structure and function. There is no aortic valve stenosis. There is no aortic valve regurgitation. Mitral Valve There is mild anterior and posterior mitral leaflet thickening. There is mild mitral valve regurgitation. There is no mitral valve stenosis. Pulmonic Valve The pulmonic valve is likely normal. There is trace pulmonic valve regurgitation. Tricuspid Valve Normal tricuspid valve structure. There is mild tricuspid valve regurgitation. Mildly elevated right atrial pressure. Mild pulmonary hypertension is present. Great Vessels The pulmonary artery was not well visualized. Venous The inferior vena cava is moderately dilated and collapses greater than 50% with inspiration. Pericardium/Pleural There is a trivial loculated pericardial effusion overlying the left ventricle. Prior Study Comparison No significant change compared to prior study dated: 12/28/2021. Measurements 2D Linear Measurements IVSd: 1.30 0.6-0.9/0.6-1.0 cm LVIDd: 4.50 3.9-5.3/4.2-5.9 cm LVIDd Index: 2.21 2.4-3.2/2.2-3.1 cm/m2 LVIDs: 3.20 2.0-3.6 cm LVPWd: 1.00 0.7-1.1 cm LA Diam: 4.40 2.7-3.8/3.0-4.0 cm LAIDs Index: 2.16 1.5-2.3 cm/m2 LV Mass: 232.24 67-162/88-224 g LV Mass Index: 113.84 43-95/49-115 g/m2 LVOT Diam: 2.20 3.0+(-)1.3 cm Mitral Valve MV Pk E: 1.08 MV Decel Time: 105.00 E'Lateral: 7.40 E'Medial: 5.11 E/E' Med: 21.10 E/E' Lat: 14.60 PHT: 31.00 MVA PHT: 7.10 Decel [place]: 10.27 Aortic Valve AoV Pk Aristeo: 1.13 AoV Pk Grad: 5.00 LVOT LVOT Pk Aristeo: 0.81 LVOT Mn Aristeo: 0.54 LVOT VTI: 0.14 LVOT Pk Grad: 3.00 LVOT Mn Grad: 1.00 LVOT Diam: 2.20 LVOT Area: 3.80 Diastolic Function MV Pk E: 1.08 E'Medial: 5.11 E/E' Med: 21.10 E' Laterial: 7.40 E/E' Lat: 14.60 Right Ventricle TAPSE (mm): 17.10 TVS' Aristeo: 8.77 Tricuspid Valve TR Pk Aristeo: 2.83 TR Pk Grad: 32.00 RA Press: 8.00 RVSP: 40.00 Great Vessels Aorta Sinus of Valsalva: 3.40 2.0-3.[address] [place]: 2.90 1.7-3.4 cm Ao Asc: 3.50 2.1-3.4 cm Updated in Other Vendor System with Status of Final Peng Lr MD electronically signed on 01/11/2023 10:51:38 AM with status of Final
== END ==
LOC: HO.CARD 12:35
PROVIDERS: PCP Internal Medicine; Visit Provider Internal Medicine Cardiovascular Disease
DX: I50.32 Chronic diastolic (congestive) heart failure (principal)
CPT/HCPCS: 93306

== ENCOUNTER → 2023-01-10 12:38 | Outpatient (BNV) | payer MEDICARE, BC, SELFPAY | PROVIDERS: PCP Internal Medicine; Visit Provider Internal Medicine Cardiovascular Disease | DX: I34.0 Nonrheumatic mitral (valve) insufficiency (principal); I36.1 Nonrheumatic tricuspid (valve) insufficiency | CPT/HCPCS: 93306 ==

== ENCOUNTER 2023-01-15 07:29 | Outpatient (REF) | payer MEDICARE, BC, SELFPAY ==
[2023-01-15 10:26] LABS: MANUAL DIFF FLAG NO
[2023-01-15 10:30] LABS: Basophils Absolute Auto 0.1 X10*3/uL (0.0-0.2); Basophils Percent Auto 0.8 % (0-2); Eosinophils Absolute Auto 0.3 X10*3/uL (0.0-0.4); Eosinophils Percent Auto 2.9 % (0-4); Hematocrit 41.4 % (37.0-47.0); Hemoglobin 13.4 g/dl (12.0-16.0); Imm Gran Abs Auto 0.03 X10*3/uL (0.00-0.03); Imm Gran Pct Auto 0.3 % (0.0-0.4); Lymphocytes Absolute Auto 2.2 X10*3/uL (1.2-4.9); Lymphocytes Percent Auto 22.8 % (20-40); Mean Corpuscular HGB Conc 32.4 g/dl (31.0-35.0); Mean Corpuscular Hemoglobin 30.6 pg (27.0-33.0); Mean Corpuscular Volume 94.5 fL (80.0-98.0); Mean Platelet Volume 12.6 fL (9.4-12.3); Monocytes Absolute Auto 0.9 X10*3/uL (0.1-1.2); Monocytes Percent Auto 9.3 % (2-11); Neutrophils Absolute Auto 6.2 x10*3/uL (2.0-8.3); Neutrophils Percent Auto 63.9 % (45-73); Platelet Count 272 X10*3/uL (160-400); Red Blood Count 4.38 X10*6/uL (4.20-5.50); Red Cell Distribution Width 14.6 % (11.0-16.0); White Blood Count 9.7 X10*3/uL (4.8-10.8)
[2023-01-15 10:39] LABS: Estimated Average Glucose 120 mg/dL; Hemoglobin A1c % 5.8 % (<6.0)
[2023-01-15 10:58] LABS: Alanine Aminotransferase 13 U/L (0-31); Albumin Level 4.1 g/dL (3.5-5.0); Alkaline Phosphatase 76 U/L (39-117); Anion Gap 12 (12-20); Aspartate Amino Transferase 17 U/L (5-31); Bilirubin Total 0.7 mg/dL (0.0-1.0); Blood Urea Nitrogen 22 mg/dL (9-16); Calcium 9.9 mg/dL (8.4-10.2); Carbon Dioxide 27 mmol/L (22-29); Chloride 106 mmol/L (96-108); Estimated Glomerular Filt Rate 52; Glucose Random 118 mg/dL (60-115); Potassium 3.9 mmol/L (3.3-5.1); Sodium 141 mmol/L (135-145); Total Protein 7.4 g/dL (6.5-8.0)
== END 2023-01-15 07:30 | disposition home or self-care (01) ==
LOC: HO.10HDL 07:29
PROVIDERS: Visit Provider Internal Medicine
DX: Z79.01 Long term (current) use of anticoagulants (principal)
CPT/HCPCS: 36415; 80053; 83036; 85025

== ENCOUNTER 2023-02-01 12:24 | Outpatient (AMB) | payer MEDICARE, BC, SELFPAY ==
[2023-02-01 12:25] VITALS: BP 118/80; PULSE 109; BMI 38.1
--- NOTE | 2023-02-01 12:25 | A.OFFVIS_ITS ---
Intake Vital Signs 02/01/23 12:25 Height 5 ft 6 in Weight 235 lb 14.314 oz BMI 38.1 BP 118/80 Blood Pressure Location Lt brachial Position Sitting Pulse 109 H Intake Visit Reasons: 6 month follow up after echo Intake Note: 6 month follow-up after echo with ekg feeling good Allergies No Known Allergies [No Known Allergies*] Allergy (Unverified 11/14/22 13:44) Medication List - Last Reconciled 02/01/23 by Peng Lr MD albuterol sulfate 90 mcg/actuation 2 puffs inhalation Q4-6H PRN 30 days apixaban 5 mg PO BID diltiazem HCl 240 mg PO DAILY fluticasone propion-salmeterol 250-50 mcg/dose (Wixela Inhub) 1 ea PO BID furosemide 20 mg PO .prn PRN loratadine 10 mg PO DAILY PRN metoprolol succinate ER (Toprol XL) 100 mg PO DAILY 30 days ragvrgyromdp-ldhi-kndnj acid 18-400 mg-mcg (Centrum Women) 1 tab PO DAILY omega 5-yet-umd-fish oil 60-90-500 mg (Fish Oil) 1 cap PO DAILY potassium chloride ER 10 mEq PO Q OTHER DAY PRN zolpidem 5 mg PO BEDTIME PRN HPI HPI Comments History of Present Illness Details Merit comes for follow-up. She has been doing well from cardiac perspective. She is usually a blood pressure is well controlled. She denies any prolonged palpitation irregular heartbeat. Says heart rate mostly in the 80s at home. Denies any orthopnea, PND, lightheadedness, syncope, worsening leg edema. She says she has to take Lasix about twice a week when she gets symptoms of shortness of breath. No hospitalizations related to heart failure. Does remain active and independent. No bleeding issues or neurologic events [facility] Medical History Asthma with COPD Restrictive lung disease Dyspnea on exertion HTN (hypertension) Chronic atrial fibrillation Chronic heart failure with preserved ejection fraction (HFpEF) Family History Father CVD (cerebrovascular disease) Mother No problems noted. Social History Patient Tobacco Use Status: Former Tobacco user Review of Systems Const Denies chills, Denies fatigue, Denies fever(s), Denies frequent falls, Denies weakness, Denies weight gain and Denies weight loss ENT Denies dizziness Card Denies chest pain, Denies leg edema, Denies lightheadedness, Denies palpitations, Denies dyspnea, Denies dyspnea on exertion, Denies orthopnea and Denies other (loss of consciousness) Resp Denies cough, Denies dyspnea and Denies dyspnea on exertion GI Denies hematochezia and Denies change in stool character Musc Denies abnormal gait, Denies muscle weakness, Denies numbness, Denies radiating pain into limb and Denies tingling Neuro Denies abnormal gait, Denies dizziness, Denies frequent falls, Denies numbness, Denies tingling and Denies weakness Endo Denies fatigue and Denies palpitations Physical Exam Vital Signs: Last Vital Signs Pulse 109 H 02/01/23 12:25 BP 118/80 02/01/23 12:25 BMI result Body Mass Index 38.1 Const General: cooperative, comfortable, alert and awake Nutritional Appearance: obese Orientation/consciousness: patient oriented x3 Limitations: no limitations Neck Neck: Yes trachea midline, Yes supple and Yes no JVD Resp Effort & Inspection: normal respiratory effort Auscultation: wheezes inspiratory wheezes Cardio Jugular venous distension: no JVD Rhythm: abnormal rhythm irregularly irregular Heart sounds: S1 normal heart sound present, S2 normal heart sound present, no click, no gallops, no murmurs and no rubs GI Inspection: Yes obesity Auscultation: normal bowel sounds Skin General skin exam: no rashes or lesions noted Neuro General: patient oriented x3 and no focal motor deficits Extrem General: No clubbing, No cyanosis and Yes edema (1+ below knee) Office Procedures EKG Details: EKG shows atrial fibrillation with slightly rapid ventricular response at 109 beats per minute nonspecific ST changes 62400-[id number], Complete Assessment & Plan Assessment & Plan (1) Chronic atrial fibrillation: Code(s): I48.20 - Chronic atrial fibrillation, unspecified Plan: Chronic atrial fibrillation has failed rhythm control approach. Generally well rate controlled. Continue current dual therapy with high-dose Cardizem and metoprolol. Advised to monitor heart rate at home on a regular basis. Continue full oral anticoagulation, currently on Eliquis 5 mg b.i.d.. Semi annual renal function test should be pursued. Continue to participate in physical activity as tolerated. (2) Chronic heart failure with preserved ejection fraction (HFpEF): Code(s): I50.32 - Chronic diastolic (congestive) heart failure Plan: Heart failure preserved ejection fraction generally well control with low-dose diuretic therapy. Continue rate control approach as above. Continue current p.r.n. use of Lasix as needed. Clinically has remained stable. Continue maintain activity level as tolerated. Continue participate in weight loss progr am. Follow up in the clinic in 6 months time, sooner p.r.n.. Thank you for allowing me to partake in her care Coding Level of Care Code Est Pt Level 4 (47480) Diagnoses Chronic atrial fibrillation I48.20 Chronic heart failure with preserved ejection fraction (HFpEF) I50.32 CPT Codes EKG - CPT: 88379-[id number], Complete ([id number])
== END 2023-02-01 12:51 | disposition home or self-care (01) ==
PROVIDERS: PCP Internal Medicine; Visit Provider Internal Medicine Cardiovascular Disease
DX: I48.20 Chronic atrial fibrillation, unspecified (principal); I50.32 Chronic diastolic (congestive) heart failure
CPT/HCPCS: 93010; 99214

== ENCOUNTER → 2023-02-01 12:24 | Outpatient (BNVA) | payer MEDICARE, BC, SELFPAY | PROVIDERS: PCP Internal Medicine; Visit Provider Internal Medicine Cardiovascular Disease | DX: I48.20 Chronic atrial fibrillation, unspecified (principal); I50.32 Chronic diastolic (congestive) heart failure; Z79.01 Long term (current) use of anticoagulants; Z79.899 Other long term (current) drug therapy | CPT/HCPCS: 93005; 99212 ==

== ENCOUNTER 2023-06-12 13:47 | Outpatient (AMB) | payer MEDICARE, BC, SELFPAY ==
[2023-06-12 13:56] VITALS: BP 130/82; PULSE 102; O2SAT 95; BMI 37.9
--- NOTE | 2023-06-12 13:56 | MHC.OFFVIS ---
Intake Vital Signs 06/12/23 13:56 Height 5 ft 6 in Weight 234 lb 12.677 oz BMI 37.9 BP 130/82 Blood Pressure Location Lt brachial Position Sitting Pulse 102 H Pulse Source Pulse Oximeter Pulse Oximetry (%) 95 Oxygen Delivery Method Room Air Intake Visit Reasons: dyspnea Intake Note: pt is here for follow up and states she is feeling okay, inhalers are working. [employer] Operator Required: No Allergies No Known Allergies [No Known Allergies*] Allergy (Unverified 06/12/23 14:07) Medication List - Last Reconciled 06/12/23 by Jung Portillo MD albuterol sulfate 90 mcg/actuation 2 puffs inhalation Q4-6H PRN 30 days apixaban 5 mg PO BID diltiazem HCl 240 mg PO DAILY fluticasone propion-salmeterol 250-50 mcg/dose (Wixela Inhub) 1 ea PO BID furosemide 20 mg PO .prn PRN loratadine 10 mg PO DAILY PRN metoprolol succinate ER (Toprol XL) 100 mg PO DAILY 30 days hvbcjsbmddfx-btue-izhcm acid 18-400 mg-mcg (Centrum Women) 1 tab PO DAILY omega 5-zzc-qoe-fish oil 60-90-500 mg (Fish Oil) 1 cap PO DAILY potassium chloride ER 10 mEq PO Q OTHER DAY PRN zolpidem 5 mg PO BEDTIME PRN Do you need a note to return to daycare/school/sports/work: No HPI dyspnea HPI Details MALE GERD IS VERY PLEASANT 83 YEARS OLD FEMALE, COMES AFTER 6 MONTHS FOR HER ROUTINE FOLLOW-UP. SHE HAS BEEN DOING VERY WELL ALL ALONG. SHE IS UP TO DATE WITH ALL THE VACCINE. LUCKILY HAS HAD NO CHEST INFECTION. JUST USES WIXELA 250-50 TWICE A DAY AND HARDLY NEEDS TO USE THE ALBUTEROL. HER SHORTNESS OF BREATH IS ONLY ME WHEN SHE WALKS UP HILL OR CLIMBS STAIRS, NOT ON LEVEL GROUND. [facility] Medical History Asthma with COPD Restrictive lung disease Dyspnea on exertion HTN (hypertension) Chronic atrial fibrillation Chronic heart failure with preserved ejection fraction (HFpEF) Family History Father CVD (cerebrovascular disease) Mother No problems noted. Social History Patient Tobacco Use Status: Former Tobacco user Review of Systems Const All systems reviewed & are unremarkable except as noted in HPI and below Eyes Reports no additional complaints ENT Reports nasal congestion (Mild off and on) Card Denies chest pain, Reports irregular heart rhythm, Denies leg edema and Reports dyspnea on exertion Resp Reports as per HPI and Reports dyspnea on exertion GI Reports no additional complaints Reports no additional complaints Musc Reports no additional complaints Skin/Breast Reports system reviewed and no additional complaints, except as documented Neuro Reports no additional complaints Psych Reports no additional complaints Physical Exam Vital Signs: Last Vital Signs Pulse 102 H 06/12/23 13:56 BP 130/82 06/12/23 13:56 Pulse Ox 95 06/12/23 13:56 Oxygen Delivery Method Room Air 06/12/23 13:56 BMI result Body Mass Index 37.9 Const General: comfortable, no acute distress, alert and awake Orientation/consciousness: patient oriented x3 HEENT Head: Yes normal to inspection General nose exam: No nasal polyps present and No nasal discharge present Face and sinus: Yes sinuses nontender Mouth: oropharynx normal Throat: Yes posterior oropharynx normal Eyes General: appearance normal, both eyes and all related structures Neck Neck: Yes normal visual inspection, Yes no lymphadenopathy, Yes trachea midline and Yes no JVD Thyroid: Thyroid normal Chest Chest palpation & inspection: normal inspection of the chest, normal palpation of entire chest wall and no tenderness Resp Other: Percussion note is resonant, breath sounds are diminished on both sides especially over the basilar areas. No crepitations or wheezes are heard. Cardio Palpation: normal PMI Rate: regular rate Rhythm: abnormal rhythm (Atrial fibrillation) Heart sounds: no gallops and no murmurs GI Palpation (GI): Soft to palpation, nontender, No hepatosplenomegaly present, no masses and Other GI palpation findings present (Abdomen slightly obese and protuberant) Auscultation: normal bowel sounds Back/Spine/Pelvis Thoracic/Lumbar Spine: thoracic and lumbar spine normal to inspection Skin General skin exam: no rashes or lesions noted Neuro General: patient oriented x3 and no focal motor deficits Cranial nerves: Yes CN's II-XII intact bilaterally Extrem General: Yes normal to inspection, Yes no calf tenderness and Yes edema (Mild pitting in the by of the left leg) Psych Appearance: grossly normal and well kempt Speech and movement: Normal speech and movement present Assessment & Plan Assessment & Plan (1) Asthma with COPD: Comment: Known to have Mild obstructive airway disorder, ( Asthma/Copd Overlap syndrome ) Stable , on current Med. Code(s): J44.9 - Chronic obstructive pulmonary disease, unspecified Plan: [place]: Wixela 250-50 1 or 2 inhalation daily , Albuterol HFA 2 puffs q 4-6 Hrs only PRN (2) Restrictive lung disease: Comment: Explained the patient about her restrictive disorder, most likely due to obesity. Code(s): J98.4 - Other disorders of lung Plan: [place] : Try to lose some weight, even one lb less will be okay. Do deep breathing exercises at least 3 times a day. Coding Level of Care Code Est Pt Level 3 (30852) Diagnoses Asthma with COPD J44.9 Restrictive lung disease J98.4
== END 2023-06-12 14:18 | disposition home or self-care (01) ==
PROVIDERS: PCP Internal Medicine; Visit Provider Internal Medicine
DX: J44.9 Chronic obstructive pulmonary disease, unspecified (principal); J98.4 Other disorders of lung
CPT/HCPCS: 99213

== ENCOUNTER → 2023-06-12 13:47 | Outpatient (BNVA) | payer MEDICARE, BC, SELFPAY | PROVIDERS: PCP Internal Medicine; Visit Provider Internal Medicine | DX: J44.9 Chronic obstructive pulmonary disease, unspecified (principal); J98.4 Other disorders of lung | CPT/HCPCS: 99212 ==

== ENCOUNTER 2023-07-11 07:23 | Outpatient (REF) | payer MEDICARE, BC, SELFPAY ==
[2023-07-11 10:20] LABS: MANUAL DIFF FLAG NO
[2023-07-11 10:23] LABS: Basophils Absolute Auto 0.1 X10*3/uL (0.0-0.2); Basophils Percent Auto 1.2 % (0-2); Eosinophils Absolute Auto 0.3 X10*3/uL (0.0-0.4); Eosinophils Percent Auto 2.8 % (0-4); Hematocrit 41.1 % (37.0-47.0); Hemoglobin 13.3 g/dl (12.0-16.0); Imm Gran Abs Auto 0.03 X10*3/uL (0.00-0.03); Imm Gran Pct Auto 0.3 % (0.0-0.4); Lymphocytes Absolute Auto 1.7 X10*3/uL (1.2-4.9); Lymphocytes Percent Auto 17.2 % (20-40); Mean Corpuscular HGB Conc 32.4 g/dl (31.0-35.0); Mean Corpuscular Hemoglobin 30.7 pg (27.0-33.0); Mean Corpuscular Volume 94.9 fL (80.0-98.0); Mean Platelet Volume 12.2 fL (9.4-12.3); Monocytes Absolute Auto 0.8 X10*3/uL (0.1-1.2); Monocytes Percent Auto 7.7 % (2-11); Neutrophils Absolute Auto 6.9 x10*3/uL (2.0-8.3); Neutrophils Percent Auto 70.8 % (45-73); Platelet Count 230 X10*3/uL (160-400); Red Blood Count 4.33 X10*6/uL (4.20-5.50); Red Cell Distribution Width 14.6 % (11.0-16.0); White Blood Count 9.7 X10*3/uL (4.8-10.8)
[2023-07-11 10:38] LABS: Estimated Average Glucose 126 mg/dL
[2023-07-11 10:57] LABS: Alanine Aminotransferase 19 U/L (0-31); Albumin Level 3.9 g/dL (3.5-5.0); Alkaline Phosphatase 84 U/L (39-117); Anion Gap 10 (12-20); Aspartate Amino Transferase 20 U/L (5-31); Bilirubin Total 0.8 mg/dL (0.0-1.0); Blood Urea Nitrogen 19 mg/dL (9-16); Calcium 9.1 mg/dL (8.4-10.2); Carbon Dioxide 27 mmol/L (22-29); Chloride 106 mmol/L (96-108); Cholesterol 184 mg/dL (<200); Estimated Glomerular Filt Rate > 60; Glucose Random 114 mg/dL (60-115); HDL Cholesterol 61 mg/dL (>40); LDL Cholesterol Calculated 109 mg/dL (<100); Potassium 4.1 mmol/L (3.3-5.1); Sodium 139 mmol/L (135-145); Total Protein 7.2 g/dL (6.5-8.0); Triglycerides 71 mg/dL (<150)
== END 2023-07-11 07:24 | disposition home or self-care (01) ==
LOC: HO.10HDL 07:23
PROVIDERS: Visit Provider Internal Medicine
DX: I10 Essential (primary) hypertension (principal); I48.91 Unspecified atrial fibrillation; J44.9 Chronic obstructive pulmonary disease, unspecified; M81.8 Other osteoporosis without current pathological fracture; R73.01 Impaired fasting glucose; Z79.01 Long term (current) use of anticoagulants
CPT/HCPCS: 36415; 80053; 80061; 82306; 83036; 85025

== ENCOUNTER 2023-07-26 12:24 | Outpatient (AMB) | payer MEDICARE, BC, SELFPAY ==
--- NOTE | 2023-07-26 12:33 | A.OFFVIS_ITS ---
Intake Vital Signs 07/26/23 12:38 Height 5 ft 6 in Weight 233 lb 11.04 oz BMI 37.7 BP 120/72 Blood Pressure Location Lt brachial Position Sitting Pulse 68 Intake Visit Reasons: 6 month follow up Intake Note: 6 month follow-up feeling good Manager Environmental Required: No Allergies No Known Allergies [No Known Allergies*] Allergy (Unverified 06/12/23 14:07) Medication List - Last Reconciled 07/26/23 by Peng Lr MD albuterol sulfate 90 mcg/actuation 2 puffs inhalation Q4-6H PRN 30 days apixaban 5 mg PO BID diltiazem HCl 240 mg PO DAILY fluticasone propion-salmeterol 250-50 mcg/dose (Wixela Inhub) 1 ea PO BID furosemide 20 mg PO Q OTHER DAY loratadine 10 mg PO DAILY PRN metoprolol succinate ER (Toprol XL) 100 mg PO DAILY 30 days yqmkgdycwpvc-jcxc-hvlnm acid 18-400 mg-mcg (Centrum Women) 1 tab PO DAILY omega 4-zkf-srp-fish oil 60-90-500 mg (Fish Oil) 1 cap PO DAILY potassium chloride ER 10 mEq PO Q OTHER DAY PRN zolpidem 5 mg PO BEDTIME PRN HPI HPI Comments History of Present Illness Details Lisbeth comes for follow-up. He has been doing very well from cardiac perspective. She denies any worsening heart failure symptoms. Denies any worsening leg edema, orthopnea, PND, abdominal distension. Denies worsening shortness of breath. No palpitations, irregular heartbeat. Takes all her medications. Recent lab work within normal limits. [facility] Medical History Asthma with COPD Restrictive lung disease Dyspnea on exertion HTN (hypertension) Chronic atrial fibrillation Chronic heart failure with preserved ejection fraction (HFpEF) Family History Father CVD (cerebrovascular disease) Mother No problems noted. Social History Patient Tobacco Use Status: Former Tobacco user Review of Systems Const Denies chills, Denies fatigue, Denies fever(s), Denies frequent falls, Denies weakness, Denies weight gain and Denies weight loss ENT Denies dizziness Card Denies chest pain, Denies leg edema, Denies lightheadedness, Denies palpitations, Denies dyspnea, Denies dyspnea on exertion, Denies orthopnea and Denies other (loss of consciousness) Resp Denies cough, Denies dyspnea and Denies dyspnea on exertion GI Denies hematochezia and Denies change in stool character Musc Denies abnormal gait, Denies muscle weakness, Denies numbness, Denies radiating pain into limb and Denies tingling Neuro Denies abnormal gait, Denies dizziness, Denies frequent falls, Denies numbness, Denies tingling and Denies weakness Endo Denies fatigue and Denies palpitations Physical Exam Vital Signs: Last Vital Signs Pulse 68 07/26/23 12:38 BP 120/72 07/26/23 12:38 BMI result Body Mass Index 37.7 Const General: cooperative, comfortable, alert and awake Nutritional Appearance: obese Orientation/consciousness: patient oriented x3 Limitations: no limitations Neck Neck: Yes trachea midline, Yes supple and Yes no JVD Resp Effort & Inspection: normal respiratory effort Auscultation: wheezes inspiratory wheezes Cardio Jugular venous distension: no JVD Rhythm: abnormal rhythm irregularly irregular Heart sounds: S1 normal heart sound present, S2 normal heart sound present, no click, no gallops, no murmurs and no rubs GI Inspection: Yes obesity Auscultation: normal bowel sounds Skin General skin exam: no rashes or lesions noted Neuro General: patient oriented x3 and no focal motor deficits Extrem General: No clubbing, No cyanosis and Yes edema (1+ below knee) Assessment & Plan Assessment & Plan (1) Chronic heart failure with preserved ejection fraction (HFpEF): Code(s): I50.32 - Chronic diastolic (congestive) heart failure Plan: Patient was stable and chronic heart failure preserved ejection fraction. Clinically euvolemic and well compensated. Continue current therapy with diuretics. Management of heart failure was discussed. Daily weight monitoring avoidance of salt loading and extra diuretics as need be. Continue aggressive rate control. Continue to participate in physical activity as tolerated as well as participate in weight loss program. She understands and agrees. Blood pressure is currently well optimized. (2) Chronic atrial fibrillation: Code(s): I48.20 - Chronic atrial fibrillation, unspecified Plan: Atrial fibrillation, chronic, has failed rhythm control approach. Difficult rate control on dual therapy with metoprolol and Cardizem. LV systolic function in the past has been within normal range. Continue rate control approach. Continue full oral anticoagulation, currently on Eliquis 5 mg b.i.d.. Semi annual renal function test should be pursued. Will follow up in the clinic in 6 months time, sooner p.r.n.. Thank you for allowing me to partake in her care Coding Level of Care Code Est Pt Level 4 (69133) Diagnoses Chronic heart failure with preserved ejection fraction (HFpEF) I50.32 Chronic atrial fibrillation I48.20
[2023-07-26 12:38] VITALS: BP 120/72; PULSE 68; BMI 37.7
== END 2023-07-26 12:59 | disposition home or self-care (01) ==
PROVIDERS: PCP Internal Medicine; Visit Provider Internal Medicine Cardiovascular Disease
DX: I50.32 Chronic diastolic (congestive) heart failure (principal); I48.20 Chronic atrial fibrillation, unspecified
CPT/HCPCS: 99214

== ENCOUNTER → 2023-07-26 12:24 | Outpatient (BNVA) | payer MEDICARE, BC, SELFPAY | PROVIDERS: PCP Internal Medicine; Visit Provider Internal Medicine Cardiovascular Disease | DX: I50.32 Chronic diastolic (congestive) heart failure (principal); I48.20 Chronic atrial fibrillation, unspecified | CPT/HCPCS: 99212 ==

== ENCOUNTER 2023-12-11 13:25 | Outpatient (AMB) | payer MEDICARE, BC, SELFPAY ==
[2023-12-11 13:31] VITALS: BP 132/82; PULSE 95; O2SAT 96; BMI 38.2
--- NOTE | 2023-12-11 13:31 | A.OFFVIS_ITS ---
Vital Signs 12/11/23 13:31 Height 5 ft 6 in Weight 236 lb 15.951 oz BMI 38.2 BP 132/82 Blood Pressure Location Lt brachial Position Sitting Pulse 95 Pulse Source Pulse Oximeter Pulse Oximetry (%) 96 Oxygen Delivery Method Room Air Intake Visit Reasons: dyspnea Intake Note: pt is here for follow up and states she is feeling okay, breathing is about the same [employer] Supervisor Required: No Allergies No Known Allergies [No Known Allergies*] Allergy (Unverified 12/11/23 13:45) Medication List - Last Reconciled 12/11/23 by Jung Portillo MD albuterol sulfate 90 mcg/actuation 2 puffs inhalation Q4-6H PRN apixaban 5 mg PO BID diltiazem HCl CD 240 mg PO DAILY fluticasone propion-salmeterol 250-50 mcg/dose (Wixela Inhub) 1 ea PO BID furosemide 20 mg PO Q OTHER DAY loratadine 10 mg PO DAILY PRN metoprolol succinate ER (Toprol XL) 100 mg PO DAILY 30 days ohhxgrjfscsd-vslw-tbwzv acid 18-400 mg-mcg (Centrum Women) 1 tab PO DAILY omega 8-spd-crt-fish oil 60-90-500 mg (Fish Oil) 1 cap PO DAILY potassium chloride ER 10 mEq PO Q OTHER DAY PRN zolpidem 5 mg PO BEDTIME PRN Do you need a note to return to daycare/school/sports/work: No HPI HPI dyspnea: Details: THIS 83 YEARS OLD VERY PLEASANT FEMALE IS HERE FOR FOLLOW-UP AFTER 4 MONTHS. SHE HAS MILD DEGREE OF ASTHMA/COPD SYNDROME IN ADDITION TO MODERATE DEGREE OF RESTRICTIVE PULMONARY DISORDER. THE RESTRICTIVE PATTERN IS MAINLY RELATED TO HER OBESITY. THE OBSTRUCTIVE PATTERN IS MUCH IMPROVED WITH THE USE WIXELA 250-50. IN FACT SHE USES 1 INHALATION IN THE MORNING, AND THE 2ND INHALER IN THE EVENING ONLY ON A P.R.N. BASIS. SHE IS MODERATELY OVERWEIGHT AND WE SCREENED HER FOR SYMPTOMS OF OBSTRUCTIVE SLEEP APNEA. SHE SAYS SHE HAS NO PROBLEM IN MAINTAINING HER SLEEP LONG SHE GOES TO SLEEP. SHE DOES HAVE A TENDENCY TO SLEEP IN THE RECLINER ALSO. [facility] Medical History Asthma with COPD Restrictive lung disease Dyspnea on exertion HTN (hypertension) Chronic atrial fibrillation Chronic heart failure with preserved ejection fraction (HFpEF) Family History Father CVD (cerebrovascular disease) Mother No problems noted. Social History Patient Tobacco Use Status: Former Tobacco user Review of Systems Const All systems reviewed & are unremarkable except as noted in HPI and below Eyes Reports no additional complaints ENT Reports nasal congestion (Mild off and on) Card Denies chest pain, Reports irregular heart rhythm, Denies leg edema and Reports dyspnea on exertion Resp Reports as per HPI and Reports dyspnea on exertion GI Reports no additional complaints Reports no additional complaints Musc Reports no additional complaints Skin/Breast Reports system reviewed and no additional complaints, except as documented Neuro Reports no additional complaints Psych Reports no additional complaints Physical Exam Vital Signs: Last Vital Signs Pulse 95 12/11/23 13:31 BP 132/82 12/11/23 13:31 Pulse Ox 96 12/11/23 13:31 Oxygen Delivery Method Room Air 12/11/23 13:31 BMI result Body Mass Index 38.2 Const General: comfortable, no acute distress, alert and awake Orientation/consciousness: patient oriented x3 HEENT Head: Yes normal to inspection General nose exam: No nasal polyps present and No nasal discharge present Face and sinus: Yes sinuses nontender Mouth: oropharynx normal Throat: Yes posterior oropharynx normal Eyes General: appearance normal, both eyes and all related structures Neck Neck: Yes normal visual inspection, Yes no lymphadenopathy, Yes trachea midline and Yes no JVD Thyroid: Thyroid normal Chest Chest palpation & inspection: normal inspection of the chest, normal palpation of entire chest wall and no tenderness Resp Other: Percussion note is resonant, breath sounds are diminished on both sides especially over the basilar areas. No crepitations or wheezes are heard. Cardio Palpation: normal PMI Rate: regular rate Rhythm: abnormal rhythm (Atrial fibrillation) Heart sounds: no gallops and no murmurs GI Palpation (GI): Soft to palpation, nontender, No hepatosplenomegaly present, no masses and Other GI palpation findings present (Abdomen slightly obese and protuberant) Auscultation: normal bowel sounds Back/Spine/Pelvis Thoracic/Lumbar Spine: thoracic and lumbar spine normal to inspection Skin General skin exam: no rashes or lesions noted Neuro General: patient oriented x3 and no focal motor deficits Cranial nerves: Yes CN's II-XII intact bilaterally Extrem General: Yes normal to inspection, Yes no calf tenderness and Yes edema (Mild pitting in the by of the left leg) Psych Appearance: grossly normal and well kempt Speech and movement: Normal speech and movement present Assessment & Plan Assessment & Plan (1) Asthma with COPD: Comment: Known to have Mild obstructive airway disorder, ( Asthma/Copd Overlap syndrome ) Stable , on current Med. Code(s): J44.9 - Chronic obstructive pulmonary disease, unspecified Category: Medical Plan: CONTINUE USING WIXELA 250-50, 1 INHALATION IN THE MORNING, SHE CAN USE HER JUDGMENT FOR THE 2ND INHALER IN THE EVENING, AND USE IT ONLY IF SHE HAS ANY WHEEZING OR COUGH OR IF SHE IS GOING OUTDOORS FOR A TRIP. ALSO HAS ALBUTEROL ON HAND BUT HARDLY NEEDS TO USE (2) Restrictive lung disease: Comment: Explained the patient about her restrictive disorder, most likely due to obesity. Code(s): J98.4 - Other disorders of lung Category: Medical Plan: RESTRICTIVE PATTERN WOULD IMPROVE IF SHE CAN LOSE WEIGHT BUT THAT IS NOT GOING TO HAPPEN IN HER CASE. ANYWAY SHE IS ADVISED TO KEEP ON DOING DEEP. BREATHING EXERCISES Coding Level of Care Code Est Pt Level 3 (40766) Diagnoses Asthma with COPD J44.9 Restrictive lung disease J98.4
== END 2023-12-11 13:46 | disposition home or self-care (01) ==
PROVIDERS: PCP Internal Medicine; Visit Provider Internal Medicine
DX: J44.9 Chronic obstructive pulmonary disease, unspecified (principal); J98.4 Other disorders of lung
CPT/HCPCS: 99213

== ENCOUNTER → 2023-12-11 13:25 | Outpatient (BNVA) | payer MEDICARE, BC, SELFPAY | PROVIDERS: PCP Internal Medicine; Visit Provider Internal Medicine | DX: J44.9 Chronic obstructive pulmonary disease, unspecified (principal); J98.4 Other disorders of lung | CPT/HCPCS: 99212 ==

== ENCOUNTER 2024-01-09 07:30 | Outpatient (REF) | payer MEDICARE, BC, SELFPAY ==
[2024-01-09 11:12] LABS: MANUAL DIFF FLAG NO
[2024-01-09 11:21] LABS: Basophils Absolute Auto 0.1 X10*3/uL (0.0-0.2); Basophils Percent Auto 0.9 % (0-2); Eosinophils Absolute Auto 0.3 X10*3/uL (0.0-0.4); Eosinophils Percent Auto 2.6 % (0-4); Hematocrit 42.6 % (37.0-47.0); Imm Gran Abs Auto 0.02 X10*3/uL (0.00-0.03); Imm Gran Pct Auto 0.2 % (0.0-0.4); Lymphocytes Absolute Auto 1.9 X10*3/uL (1.2-4.9); Lymphocytes Percent Auto 18.3 % (20-40); Mean Corpuscular HGB Conc 32.9 g/dl (31.0-35.0); Mean Corpuscular Hemoglobin 31.5 pg (27.0-33.0); Mean Corpuscular Volume 95.7 fL (80.0-98.0); Mean Platelet Volume 12.4 fL (9.4-12.3); Monocytes Absolute Auto 0.8 X10*3/uL (0.1-1.2); Monocytes Percent Auto 7.5 % (2-11); Neutrophils Absolute Auto 7.1 x10*3/uL (2.0-8.3); Neutrophils Percent Auto 70.5 % (45-73); Platelet Count 236 X10*3/uL (160-400); Red Blood Count 4.45 X10*6/uL (4.20-5.50); Red Cell Distribution Width 14.1 % (11.0-16.0); White Blood Count 10.1 X10*3/uL (4.8-10.8)
[2024-01-09 11:56] LABS: Alanine Aminotransferase 15 U/L (0-31); Albumin Level 4.1 g/dL (3.5-5.0); Alkaline Phosphatase 80 U/L (39-117); Anion Gap 13 (12-20); Aspartate Amino Transferase 20 U/L (5-31); Bilirubin Total 0.8 mg/dL (0.0-1.0); Blood Urea Nitrogen 18 mg/dL (9-16); Calcium 9.5 mg/dL (8.4-10.2); Carbon Dioxide 27 mmol/L (22-29); Chloride 104 mmol/L (96-108); Estimated Glomerular Filt Rate 52; Glucose Random 115 mg/dL (60-115); Potassium 4.1 mmol/L (3.3-5.1); Sodium 140 mmol/L (135-145); Total Protein 7.6 g/dL (6.5-8.0); Vitamin D 25-OH Total 47.8 ng/mL (>30)
[2024-01-09 12:02] LABS: Vitamin B12 797 pg/mL (200-900)
== END 2024-01-09 07:31 | disposition home or self-care (01) ==
LOC: HO.10HDL 07:30
PROVIDERS: Visit Provider Internal Medicine
DX: I10 Essential (primary) hypertension (principal); I48.91 Unspecified atrial fibrillation; J98.4 Other disorders of lung; R73.01 Impaired fasting glucose; Z79.01 Long term (current) use of anticoagulants
CPT/HCPCS: 36415; 80053; 82306; 82607; 85025

== ENCOUNTER 2024-01-15 13:12 | Outpatient (AMB) | payer MEDICARE, BC, SELFPAY ==
--- NOTE | 2024-01-15 13:41 | MHC.OFFVIS ---
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 Allergies No Known Allergies [No Known Allergies*] Allergy (Unverified 12/11/23 13:45) Medication List - Last Reconciled 01/15/24 by Peng Lr MD albuterol sulfate 90 mcg/actuation 2 puffs inhalation Q4-6H PRN apixaban 5 mg PO BID diltiazem HCl CD 240 mg PO DAILY fluticasone propion-salmeterol 250-50 mcg/dose (Wixela Inhub) 1 ea PO BID furosemide 20 mg PO Q OTHER DAY loratadine 10 mg PO DAILY PRN metoprolol succinate ER (Toprol XL) 100 mg PO DAILY 30 days xqtfdfaltiiw-mmrc-hkfil acid 18-400 mg-mcg (Centrum Women) 1 tab PO DAILY omega 3-kot-ryr-fish oil 60-90-500 mg (Fish Oil) 1 cap PO DAILY potassium chloride ER 10 mEq PO Q OTHER DAY PRN zolpidem 5 mg PO BEDTIME PRN HPI Comments Details: Lisbeth comes for follow-up. She has been doing well from cardiac perspective. She denies any significant worsening cardiac symptoms. Denies any significant palpitation or irregular heartbeat or prolonged fast heart rate. She says usually at home when she is resting heart rate on the mid 80s. She denies any worsening heart failure symptoms. No orthopnea, PND, leg edema. No worsening shortness of breath. Takes all her medications. No bleeding issues or neurologic events. No lightheadedness, syncope. No exertional chest pain [facility] Medical History Asthma with COPD Restrictive lung disease Dyspnea on exertion HTN (hypertension) Chronic atrial fibrillation Chronic heart failure with preserved ejection fraction (HFpEF) Family History Father CVD (cerebrovascular disease) Mother No problems noted. Social History Patient Tobacco Use Status: Former Tobacco user Review of Systems Const Denies chills, Denies fatigue, Denies fever(s), Denies frequent falls, Denies weakness, Denies weight gain and Denies weight loss ENT Denies dizziness Card Denies chest pain, Denies leg edema, Denies lightheadedness, Denies palpitations, Denies dyspnea, Denies dyspnea on exertion, Denies orthopnea and Denies other (loss of consciousness) Resp Denies cough, Denies dyspnea and Denies dyspnea on exertion GI Denies hematochezia and Denies change in stool character Musc Denies abnormal gait, Denies muscle weakness, Denies numbness, Denies radiating pain into limb and Denies tingling Neuro Denies abnormal gait, Denies dizziness, Denies frequent falls, Denies numbness, Denies tingling and Denies weakness Endo Denies fatigue and Denies palpitations Physical Exam Vital Signs: Last Vital Signs Pulse 115 H 01/15/24 13:45 BP 122/70 01/15/24 13:45 BMI result Body Mass Index 32.7 Const General: cooperative, comfortable, alert and awake Nutritional Appearance: obese Orientation/consciousness: patient oriented x3 Limitations: no limitations Neck Neck: Yes trachea midline, Yes supple and Yes no JVD Resp Effort & Inspection: normal respiratory effort Auscultation: wheezes inspiratory wheezes Cardio Jugular venous distension: no JVD Rate: tachycardic Rhythm: abnormal rhythm irregularly irregular Heart sounds: S1 normal heart sound present, S2 normal heart sound present, no click, no gallops, no murmurs and no rubs GI Inspection: Yes obesity Auscultation: normal bowel sounds Skin General skin exam: no rashes or lesions noted Neuro General: patient oriented x3 and no focal motor deficits Extrem General: No clubbing, No cyanosis and Yes edema (1+ below knee) Office Procedures EKG Details: Atrial fibrillation with rapid ventricular response at 115 beats per minute with incomplete right bundle-branch block and nonspecific ST changes [id number], Complete Assessment & Plan Assessment & Plan (1) Chronic atrial fibrillation: Code(s): I48.20 - Chronic atrial fibrillation, unspecified Category: Medical Plan: Chronic atrial fibrillation without any new symptoms but has uncontrolled heart rate despite dual therapy with Cardizem and metoprolol at good doses. Will add digoxin 0.125 mg to her regimen. Follow-up digoxin assay in 1 week. Will also follow-up Holter monitor in 2 weeks for assess adequate rate control. Continue full oral anticoagulation, currently on Eliquis 5 mg b.i.d.. Semi annual renal function test should be pursued. (2) Chronic heart failure with preserved ejection fraction (HFpEF): Code(s): I50.32 - Chronic diastolic (congestive) heart failure Category: Medical Plan: Heart failure preserved ejection fraction, clinically euvolemic and well compensated. Follow-up echocardiogram couple of months. Continue aggressive rate control but. Continue current diuretic regimen. Daily weight monitoring avoidance salt loading was discussed advised to call me with worsening symptoms. She has done well on current low-dose diuretic therapy. Will follow up in the clinic in 6 months time, sooner p.r.n.. Thank you for allowing me to partake in her care Orders: Orders CA echo transthoracic complete 2 Months I50.32 - Chronic diastolic (congestive) heart failure Digoxin 1 Week I48.20 - Chronic atrial fibrillation, unspecified ECG 3 day holter monitor 2 Weeks I48.20 - Chronic atrial fibrillation, unspecified Medications: New digoxin 125 mcg PO DAILY 30 tabs 5RF Coding Level of Care Code Est Pt Level 4 (92249) Diagnoses Chronic atrial fibrillation I48.20 Chronic heart failure with preserved ejection fraction (HFpEF) I50.32 CPT Codes EKG - CPT: [id number], Complete ([id number])
[2024-01-15 13:45] VITALS: BP 122/70; PULSE 115; BMI 32.7
== END 2024-01-15 14:20 | disposition home or self-care (01) ==
PROVIDERS: PCP Internal Medicine; Visit Provider Internal Medicine Cardiovascular Disease
DX: I48.20 Chronic atrial fibrillation, unspecified (principal); I50.32 Chronic diastolic (congestive) heart failure
CPT/HCPCS: 93010; 99214

== ENCOUNTER → 2024-01-15 13:12 | Outpatient (BNVA) | payer MEDICARE, BC, SELFPAY | PROVIDERS: PCP Internal Medicine; Visit Provider Internal Medicine Cardiovascular Disease | DX: I48.20 Chronic atrial fibrillation, unspecified (principal); I45.10 Unspecified right bundle-branch block; I11.0 Hypertensive heart disease with heart failure; I50.32 Chronic diastolic (congestive) heart failure | CPT/HCPCS: 93005; 99212 ==

== ENCOUNTER 2024-01-24 07:44 | Outpatient (REF) | payer MEDICARE, BC, SELFPAY ==
[2024-01-24 08:55] LABS: Digoxin 0.4 ng/mL (0.8-2.0)
== END 2024-01-24 07:45 | disposition home or self-care (01) ==
LOC: HO.LAB 07:44
PROVIDERS: PCP Internal Medicine; Visit Provider Internal Medicine Cardiovascular Disease
DX: I48.20 Chronic atrial fibrillation, unspecified (principal)
CPT/HCPCS: 36415; 80162

== ENCOUNTER → 2024-01-28 12:19 | Outpatient (REF) | payer MEDICARE, BC, SELFPAY ==
--- NOTE | 2024-01-28 12:22 | HM_ITS ---
* Total monitoring time 3 days. * Underlying rhythm is atrial fibrillation. Average ventricular rate 76/Min. * Rare ventricular ectopy. * No significant pauses or AV blocks. * No patient markers or diary events. MTDD
== END ==
LOC: HO.CARD 12:19
PROVIDERS: PCP Internal Medicine; Visit Provider Internal Medicine Cardiovascular Disease
DX: I48.20 Chronic atrial fibrillation, unspecified (principal)
CPT/HCPCS: 93242

== ENCOUNTER → 2024-01-28 12:22 | Outpatient (BNV) | payer MEDICARE, BC, SELFPAY | PROVIDERS: PCP Internal Medicine; Visit Provider Internal Medicine | DX: I48.91 Unspecified atrial fibrillation (principal) | CPT/HCPCS: 93244 ==

== ENCOUNTER 2024-02-22 11:45 | Outpatient (REF) | payer MEDICARE, BC, SELFPAY ==
[2024-02-22 15:20] LABS: Digoxin 2.2 ng/mL (0.8-2.0)
== END 2024-02-22 11:46 | disposition home or self-care (01) ==
LOC: HO.LAB 11:45
PROVIDERS: PCP Internal Medicine; Visit Provider Internal Medicine Cardiovascular Disease
DX: I48.20 Chronic atrial fibrillation, unspecified (principal)
CPT/HCPCS: 36415; 80162

== ENCOUNTER 2024-03-10 09:25 | Outpatient (REF) | payer MEDICARE, BC, SELFPAY ==
[2024-03-10 14:40] LABS: Digoxin 0.6 ng/mL (0.8-2.0)
== END 2024-03-10 09:26 | disposition home or self-care (01) ==
LOC: HO.LAB 09:25
PROVIDERS: Absent Provider Internal Medicine; PCP Internal Medicine; Visit Provider Physician Assistant
DX: I50.32 Chronic diastolic (congestive) heart failure (principal); I48.20 Chronic atrial fibrillation, unspecified
CPT/HCPCS: 36415; 80162

== ENCOUNTER → 2024-03-24 12:24 | Outpatient (REF) | payer MEDICARE, BC, SELFPAY ==
--- NOTE | 2024-03-24 12:28 | CA_ITS ---
Transthoracic Echocardiogram Patient (Last, First, Middle): Lisbeth Ruby A Gender: Female Date of : 1940 Age: 83 Procedure Date: 03/24/2024 Procedure Type: Transthoracic Echocardiogram Location: OP Height: 167.64 cm Weight: 91.63 kg BSA: 2.01 m2 Heart Rate: 80 bpm BP: 122 / 70 mmHg Director Athletic: CARLA Referring MD: Peng Lr MD Veneer Joiner: Peng Lr MD Symptoms: I50.32 - Chronic diastolic (congestive) heart failure Study Quality: Adequate ECG Rhythm: Atrial Fibrillation Conclusions: - 1. Normal LV ejection fraction of 60 65% 2. Mildly dilated right ventricle with moderate RV systolic dysfunction by TAPSE 3. At least moderate biatrial enlargement 4. Normal RV systolic pressure with mildly elevated right atrial pressures 5. No gross pericardial effusion Findings Left Ventricle Normal left ventricular size, thickness, and systolic function. The visually estimated ejection fraction is between 60-65%. Diastolic function is indeterminate on the basis of available data. Right Ventricle Mildly increased right ventricular cavity size. There is moderately decreased right ventricular systolic function. Atria The left atrium is moderately dilated. There is no evidence of interatrial shunt. The right atrium is moderately dilated. Aortic Valve There is mild calcification of the aortic valve. There is mild thickening of the aortic valve. There is no aortic valve stenosis. There is no aortic valve regurgitation. Mitral Valve There is mild anterior and posterior mitral leaflet thickening. There is mild anterior and mild posterior mitral annular calcification. There is trace mitral valve regurgitation. There is no mitral valve stenosis. Pulmonic Valve The pulmonic valve is likely normal. Tricuspid Valve Normal tricuspid valve structure. There is mild tricuspid valve regurgitation. Mildly elevated right atrial pressure. There is no evidence of pulmonary hypertension. Great Vessels The pulmonary artery was not well visualized. There is no dilatation of the ascending aorta measuring 3.50 cm. Venous The inferior vena cava is mildly dilated and collapses less than 50% with inspiration. Pericardium/Pleural There is no evidence of pericardial effusion. Prior Study Comparison No significant change compared to prior study dated: 01/10/2023. Measurements 2D Linear Measurements IVSd: 1.00 0.6-0.9/0.6-1.0 cm LVIDd: 4.68 3.9-5.3/4.2-5.9 cm LVIDd Index: 2.33 2.4-3.2/2.2-3.1 cm/m2 LVIDs: 2.85 2.0-3.6 cm LVPWd: 0.95 0.7-1.1 cm LA Diam: 4.60 2.7-3.8/3.0-4.0 cm LAIDs Index: 2.29 1.5-2.3 cm/m2 LV Mass: 196.76 67-162/88-224 g LV Mass Index: 97.89 43-95/49-115 g/m2 LVOT Diam: 2.30 3.0+(-)1.3 cm 2D Systolic Function EF 4C: 64.10 >55% EF 2C: 57.20 >55% EF BiP: 60.00 >55% Mitral Valve MV Pk E: 1.16 MV PK A: 0.42 MV Decel Time: 162.00 E/A: 2.80 E'Lateral: 7.83 E'Medial: 5.33 E/E' Med: 21.80 E/E' Lat: 14.80 PHT: 47.00 MVA PHT: 4.68 Decel [place]: 7.14 Aortic Valve AoV Pk Aristeo: 1.27 AoV Pk Grad: 6.00 ROXANN: 3.30 LVOT LVOT Pk Aristeo: 1.01 LVOT Mn Aristeo: 0.72 LVOT VTI: 0.21 LVOT Pk Grad: 4.00 LVOT Mn Grad: 2.00 LVOT Diam: 2.30 LVOT Area: 4.15 Diastolic Function MV Pk E: 1.16 MV Pk A: 0.42 E/A: 2.80 E'Medial: 5.33 E/E' Med: 21.80 E' Laterial: 7.83 E/E' Lat: 14.80 Right Ventricle TAPSE (mm): 14.20 TVS' Aristeo: 10.00 Tricuspid Valve TR Pk Aristeo: 2.60 TR Pk Grad: 27.00 RA Press: 8.00 RVSP: 35.00 Great Vessels Aorta Sinus of Valsalva: 3.50 2.0-3.5 cm Ao Asc: 3.50 2.1-3.4 cm Pulmonary Valve PV Pk Aristeo: 0.80 Peak PV Grad: 3.00 Updated in Other Vendor System with Status of Final Peng Lr MD electronically signed on 03/25/2024 12:11:46 PM with status of Final
== END ==
LOC: HO.CARD 12:24
PROVIDERS: PCP Internal Medicine; Visit Provider Internal Medicine Cardiovascular Disease
DX: I50.32 Chronic diastolic (congestive) heart failure (principal)
CPT/HCPCS: 93306

== ENCOUNTER → 2024-03-24 12:28 | Outpatient (BNV) | payer MEDICARE, BC, SELFPAY | PROVIDERS: PCP Internal Medicine; Visit Provider Internal Medicine Cardiovascular Disease | DX: I35.8 Other nonrheumatic aortic valve disorders (principal); I34.81 Nonrheumatic mitral (valve) annulus calcification; I36.1 Nonrheumatic tricuspid (valve) insufficiency; I51.7 Cardiomegaly | CPT/HCPCS: 93306 ==

== ENCOUNTER 2024-06-10 13:08 | Outpatient (AMB) | payer MEDICARE, BC, SELFPAY ==
[2024-06-10 13:13] VITALS: BP 140/78; PULSE 95; O2SAT 95; BMI 34.9
--- NOTE | 2024-06-10 13:13 | MHC.OFFVIS ---
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 Take one tab Sunday and Sunday; diltiazem HCl CD 240 mg PO DAILY fluticasone propion-salmeterol 250-50 mcg/dose 1 ea PO BID furosemide 20 mg PO Q OTHER DAY PRN loratadine 10 mg PO DAILY PRN metoprolol succinate ER (Toprol XL) 100 mg PO DAILY 30 days zsfyyhxcphti-xfst-aclac acid 18-400 mg-mcg (Centrum Women) 1 tab PO DAILY omega 9-jyk-lfy-fish oil 60-90-500 mg (Fish Oil) 1 cap PO DAILY potassium chloride ER 10 mEq PO Q OTHER DAY PRN zolpidem 5 mg PO BEDTIME PRN Do you need a note to return to daycare/school/sports/work: No HPI HPI Dyspnea: Details: KRISTINA IS 84 YEARS OLD VERY PLEASANT FEMALE, COMES FOR FOLLOW-UP AFTER 6 MONTHS. SHE HAS BEEN DOING VERY WELL AND THERE HAS BEEN NO ACUTE EXACERBATION IN THE LAST 6 MONTHS. USING WIXELA 250-50 1 INHALATION B.I.D., AND HARDLY NEEDS TO USE THE RESCUE INHALER. SHE IS 84 YEARS OLD BUT REMAINS VERY ACTIVE [facility] Medical History Asthma with COPD Restrictive lung disease Dyspnea on exertion HTN (hypertension) Chronic atrial fibrillation Chronic heart failure with preserved ejection fraction (HFpEF) Family History Father CVD (cerebrovascular disease) Mother No problems noted. Social History Patient Tobacco Use Status: Former Tobacco user Review of Systems Const All systems reviewed & are unremarkable except as noted in HPI and below Eyes Reports no additional complaints ENT Reports nasal congestion (Mild off and on) Card Denies chest pain, Reports irregular heart rhythm, Denies leg edema and Reports dyspnea on exertion Resp Reports as per HPI and Reports dyspnea on exertion GI Reports no additional complaints Reports no additional complaints Musc Reports no additional complaints Skin/Breast Reports system reviewed and no additional complaints, except as documented Neuro Reports no additional complaints Psych Reports no additional complaints Physical Exam Vital Signs: Last Vital Signs Pulse 95 06/10/24 13:13 BP 140/78 H 06/10/24 13:13 Pulse Ox 95 06/10/24 13:13 Oxygen Delivery Method Room Air 06/10/24 13:13 BMI result Body Mass Index 34.9 Const General: comfortable, no acute distress, alert and awake Orientation/consciousness: patient oriented x3 HEENT Head: Yes normal to inspection General nose exam: No nasal polyps present and No nasal discharge present Face and sinus: Yes sinuses nontender Mouth: oropharynx normal Throat: Yes posterior oropharynx normal Eyes General: appearance normal, both eyes and all related structures Neck Neck: Yes normal visual inspection, Yes no lymphadenopathy, Yes trachea midline and Yes no JVD Thyroid: Thyroid normal Chest Chest palpation & inspection: normal inspection of the chest, normal palpation of entire chest wall and no tenderness Resp Other: Percussion note is resonant, breath sounds are diminished on both sides especially over the basilar areas. No crepitations or wheezes are heard. Cardio Palpation: normal PMI Rate: regular rate Rhythm: abnormal rhythm (Atrial fibrillation) Heart sounds: no gallops and no murmurs GI Palpation (GI): Soft to palpation, nontender, No hepatosplenomegaly present, no masses and Other GI palpation findings present (Abdomen slightly obese and protuberant) Auscultation: normal bowel sounds Back/Spine/Pelvis Thoracic/Lumbar Spine: thoracic and lumbar spine normal to inspection Skin General skin exam: no rashes or lesions noted Neuro General: patient oriented x3 and no focal motor deficits Cranial nerves: Yes CN's II-XII intact bilaterally Extrem General: Yes normal to inspection, Yes no calf tenderness and Yes edema (Mild pitting in the by of the left leg) Psych Appearance: grossly normal and well kempt Speech and movement: Normal speech and movement present Assessment & Plan Assessment & Plan (1) Asthma with COPD: Comment: Known to have Mild obstructive airway disorder, ( Asthma/Copd Overlap syndrome ) Stable , on current Med. Code(s): J44.9 - Chronic obstructive pulmonary disease, unspecified Category: Medical Plan: CONTINUE FLUTICASONE-SALMETEROL 250-51 INHALATION B.I.D. ALBUTEROL HFA 2 PUFFS Q 6 HOURS ONLY P.R.N.. (2) Restrictive lung disease: Comment: Explained the patient about her restrictive disorder, most likely due to obesity. Code(s): J98.4 - Other disorders of lung Category: Medical Plan: HAD A GOOD TALK WITH HER AND ENCOURAGED TO KEEP ON DOING DEEP BREATHING EXERCISES A FEW TIMES EVERY DAY Coding Level of Care Code Est Pt Level 3 (79333) Diagnoses Asthma with COPD J44.9 Restrictive lung disease J98.4
--- OUTSIDE RECORDS SUMMARY | 2024-06-10 13:26 | XMS_ITS | Clinical Summary ---
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 Name Role Phone Unavailable Primary Care Provider Unavailabl e Immunizations Name Administration Dates Next Due Influenza, seasonal, injectable, preservative fr ee 01/23/2024 Social History Tobacco Use Types Packs/Day Years Used Date Smoking Tobacco: Never Assessed Comments Unknown Sex and Gender Information Value Date Recorded Sex Assigned at Female 01/23/2024 3:50 PM EDT Legal Sex Female 3:49 PM EDT Gender Identity Female 01/23/2024 3:50 PM EDT Sexual Orientation Don't know 01/23/2024 3: 50 PM EDT Plan of Treatment Health Maintenance Due Date Last Done Comments Depression Screening 1940 SDOH Screening 1940 Alcohol/Substance Use Screening 1950 Tobacco Screening 1952 DTaP/Tdap/Td Vaccines (1 - Tdap) 1957 Pneumococcal Vaccine: 50+ Ye ars (1 of 1 - PCV) 1988 Zoster Vaccines (1 of 2) 1988 RSV Patients and Pa tients Aged 60 years or older (1 - 1-dose 75+ series) 2013 COVID-19 Vaccine (2023-2 5 season) 2024 Influenza Vaccine Completed 01/23/2024 HIB Vaccines Aged Out No longer eligi ble based on patient's age to complete this topic HPV Vaccines Aged Out No longer eligi ble based on patient's age to complete this topic Hepatitis A Vaccines Aged Out No long er eligible based on patient's age to complete this topic Hepatitis B Vaccines Aged Out No long er eligible based on patient's age to complete this topic IPV Vaccines Aged Out No longer eligi ble based on patient's age to complete this topic Meningococcal Vaccine Aged Out No jluis elida eligible based on patient's age to complete this topic RSV under 20 months Aged Out No longe r eligible based on patient's age to complete this topic Rotavirus Vaccines Aged Out No longer eligible based on patient's age to complete this topic Insurance MEDICARE [facility] FEDERAL
--- OUTSIDE RECORDS SUMMARY | 2024-06-10 13:26 | XMS_ITS | Clinical Summary ---
Author Organization [facility] Address [address] [place] [address] Care Team Providers Care Dish Up Person Name Role Phone Unavailable Primary Care Provider Unavailabl e Social History Tobacco Use Types Packs/Day Years Used Date Smoking Tobacco: Never Assessed Sex and Gender Information Value Date Recorded Sex Assigned at Not on file Gender Identity Not on file Sexual Orientation Not on file Plan of Treatment Health Maintenance Due Date Last Done Comments DTaP,Tdap,and Td Vaccines (1 - Tdap) 1957 Zoster Vaccines (1 of 2) 1988 Pneumococcal Vaccine: 65+ Ye ars (1 of 1 - PCV) 2003 RSV Immunization Patients 60 + Years Old (1 - 1-dose 75+ series) 2013 Depression Screening 04/09/2022 Falls Risk Assessment 04/09/2022 Osteoporosis Screening (Bone Density Screening) 04/09/2022 Social Influencers of Health Screening 04/09/2022 COVID-19 Vaccine ( - 2023-2 5 season) 2024 Influenza Vaccine (#1) 2024 HIB Vaccines Aged Out No longer eligi [...] on patient's age to complete this topic MMR Vaccines Aged Out No longer eligi ble based on patient's age to complete this topic Meningococcal ACWY Vaccine Aged Out N o longer eligible based on patient's age to complete this topic RSV Immunization Patients Un ashlie 20 months Aged Out No longer eligible b ased on patient's age to complete this topic Varicella Vaccines Aged Out No longer eligible based on patient's age to complete this topic
== END 2024-06-10 13:36 | disposition home or self-care (01) ==
PROVIDERS: PCP Internal Medicine; Visit Provider Internal Medicine
DX: J44.9 Chronic obstructive pulmonary disease, unspecified (principal); J98.4 Other disorders of lung
CPT/HCPCS: 99213

== ENCOUNTER → 2024-06-10 13:08 | Outpatient (BNVA) | payer MEDICARE, BC, SELFPAY | PROVIDERS: PCP Internal Medicine; Visit Provider Internal Medicine | DX: J44.9 Chronic obstructive pulmonary disease, unspecified (principal); J98.4 Other disorders of lung | CPT/HCPCS: 99212 ==

== ENCOUNTER 2024-07-14 07:55 | Outpatient (REF) | payer MEDICARE, BC, SELFPAY ==
--- OUTSIDE RECORDS SUMMARY | 2024-07-14 07:59 | XMS_ITS | Clinical Summary ---
Author Organization [employer] Address [address] [facility] [address] [place] [address] Care Team Providers Care Extractions Technologist Name Role Phone Unavailable Primary Care Provider [...] age to complete this topic Insurance MEDICARE [facility] FEDERAL
--- OUTSIDE RECORDS SUMMARY | 2024-07-14 07:59 | XMS_ITS | Clinical Summary ---
Author Organization [facility] it[facility] Address [address] [place] [address] Care Team Providers Care Director Dietetics Department Name Role Phone Unavailable Primary Care Provider Unavailabl e Social History Tobacco Use Types Packs/Day Years Used Date Smoking Tobacco: Never Assessed Comments Unknown Sex and Gender Information Value Date Recorded Sex Assigned at Not on file Legal Sex Female 9:52 AM EST Gender Identity Not on file Sexual Orientation Not on file Plan of Treatment Health Maintenance Due Date Last Done Comments DTaP,Tdap,and Td Vaccines (1 - Tdap) 1957 Pneumococcal Vaccine: 50+ Ye ars (1 of 1 - PCV) 1988 Zoster Vaccines (1 of 2) 1988 RSV Immunization Patients 60 + Years Old [...] patient's age to complete this topic Meningococcal B Vacine Aged Out No lo nger eligible based on patient's age to complete this topic RSV Immunization Patients Un ashlie 20 months Aged Out No longer eligible b ased on patient's age to complete this topic Varicella Vaccines Aged Out No longer eligible based on patient's age to complete this topic
[2024-07-14 08:15] LABS: MANUAL DIFF FLAG NO
[2024-07-14 08:26] LABS: Basophils Absolute Auto 0.1 X10*3/uL (0.0-0.2); Basophils Percent Auto 0.7 % (0-2); Eosinophils Absolute Auto 0.2 X10*3/uL (0.0-0.4); Eosinophils Percent Auto 1.7 % (0-4); Hematocrit 41.5 % (37.0-47.0); Imm Gran Abs Auto 0.06 X10*3/uL (0.00-0.03); Imm Gran Pct Auto 0.4 % (0.0-0.4); Lymphocytes Absolute Auto 1.9 X10*3/uL (1.2-4.9); Mean Corpuscular HGB Conc 33.7 g/dl (31.0-35.0); Mean Corpuscular Hemoglobin 31.3 pg (27.0-33.0); Mean Corpuscular Volume 92.8 fL (80.0-98.0); Mean Platelet Volume 11.3 fL (9.4-12.3); Monocytes Absolute Auto 0.8 X10*3/uL (0.1-1.2); Neutrophils Absolute Auto 10.7 x10*3/uL (2.0-8.3); Neutrophils Percent Auto 77.2 % (45-73); Platelet Count 271 X10*3/uL (160-400); Red Blood Count 4.47 X10*6/uL (4.20-5.50); Red Cell Distribution Width 14.4 % (11.0-16.0); White Blood Count 13.8 X10*3/uL (4.8-10.8)
[2024-07-14 08:46] LABS: Digoxin 0.7 ng/mL (0.8-2.0)
[2024-07-14 08:59] LABS: Albumin Level 3.8 g/dL (3.5-5.0); Anion Gap 12 (12-20); Carbon Dioxide 24 mmol/L (22-29); Chloride 109 mmol/L (96-108); Cholesterol 151 mg/dL (<200); Glucose Random 122 mg/dL (60-115); Potassium 4.1 mmol/L (3.3-5.1); Sodium 141 mmol/L (135-145); Total Protein 7.5 g/dL (6.5-8.0)
[2024-07-14 09:04] LABS: Alanine Aminotransferase 18 U/L (0-31); Alkaline Phosphatase 79 U/L (39-117); Aspartate Amino Transferase 23 U/L (5-31); Bilirubin Total 0.8 mg/dL (0.0-1.0); Blood Urea Nitrogen 15 mg/dL (9-16); Calcium 9.3 mg/dL (8.4-10.2); Estimated Glomerular Filt Rate > 60; HDL Cholesterol 46 mg/dL (>40); LDL Cholesterol Calculated 87 mg/dL (<100); Triglycerides 94 mg/dL (<150)
[2024-07-14 09:33] LABS: Thyroid Stimulating Hormone 1.74 uIU/mL (0.32-4.0)
== END 2024-07-14 07:56 | disposition home or self-care (01) ==
LOC: HO.LAB 07:55
PROVIDERS: PCP Internal Medicine; Visit Provider Internal Medicine
DX: I10 Essential (primary) hypertension (principal); I48.91 Unspecified atrial fibrillation; R73.01 Impaired fasting glucose; Z79.01 Long term (current) use of anticoagulants
CPT/HCPCS: 36415; 80053; 80061; 80162; 84443; 85025

== ENCOUNTER 2024-07-28 13:02 | Outpatient (AMB) | payer MEDICARE, BC, SELFPAY ==
--- NOTE | 2024-07-28 13:31 | MHC.OFFVIS ---
Vital Signs 07/28/24 13:32 Height 5 ft 6 in Weight 207 lb 3.752 oz BMI 33.4 BP 120/78 Blood Pressure Location Lt brachial Position Sitting Pulse 72 Intake Visit Reasons: 6 mth fu Intake Note: 6 month follow-up feeling good Cutter And Edge Trimmer Required: No Allergies No Known Allergies [No Known Allergies*] Allergy (Unverified 06/10/24 13:26) Medication List - Last Reconciled 07/28/24 by Peng Lr MD albuterol sulfate 90 mcg/actuation 2 puffs inhalation Q4-6H PRN apixaban 5 mg PO BID digoxin 125 mcg PO ONCE diltiazem HCl CD 240 mg PO DAILY fluticasone propion-salmeterol 250-50 mcg/dose 1 ea PO BID furosemide 20 mg PO Q OTHER DAY PRN loratadine 10 mg PO DAILY PRN metoprolol succinate ER (Toprol XL) 100 mg PO DAILY 30 days kisrjijkdtao-rtwi-rjtwu acid 18-400 mg-mcg (Centrum Women) 1 tab PO DAILY omega 7-iyu-oua-fish oil 60-90-500 mg (Fish Oil) 1 cap PO DAILY potassium chloride ER 10 mEq PO Q OTHER DAY PRN zolpidem 5 mg PO BEDTIME PRN HPI Comments Details: Lisbeth comes for follow-up. Overall she has been doing well. She says she has been losing weight as her appetite has been curtail. She says her breathing has improved significantly. She denies any worsening shortness of breath actually this is improved. She denies any orthopnea, PND. He takes Lasix every other day when she notices leg swelling and this helps her. She denies any prolonged palpitation irregular heartbeat. Takes all her medications. Digoxin level recently was in the therapeutic range. No bleeding issues or neurologic events. [facility] Medical History Asthma with COPD Restrictive lung disease Dyspnea on exertion HTN (hypertension) Chronic atrial fibrillation Chronic heart failure with preserved ejection fraction (HFpEF) Family History Father CVD (cerebrovascular disease) Mother No problems noted. Social History Patient Tobacco Use Status: Former Tobacco user Review of Systems Const Denies chills, Denies fatigue, Denies fever(s), Denies frequent falls, Denies weakness, Denies weight gain and Denies weight loss ENT Denies dizziness Card Denies chest pain, Denies leg edema, Denies lightheadedness, Denies palpitations, Denies dyspnea, Denies dyspnea on exertion, Denies orthopnea and Denies other (loss of consciousness) Resp Denies cough, Denies dyspnea and Denies dyspnea on exertion GI Denies hematochezia and Denies change in stool character Musc Denies abnormal gait, Denies muscle weakness, Denies numbness, Denies radiating pain into limb and Denies tingling Neuro Denies abnormal gait, Denies dizziness, Denies frequent falls, Denies numbness, Denies tingling and Denies weakness Endo Denies fatigue and Denies palpitations Physical Exam Vital Signs: Last Vital Signs Pulse 72 07/28/24 13:32 BP 120/78 07/28/24 13:32 BMI result Body Mass Index 33.4 Const General: cooperative, comfortable, alert and awake Nutritional Appearance: obese Orientation/consciousness: patient oriented x3 Limitations: no limitations Neck Neck: Yes trachea midline, Yes supple and Yes no JVD Resp Effort & Inspection: normal respiratory effort Auscultation: wheezes inspiratory wheezes Cardio Jugular venous distension: no JVD Rate: tachycardic Rhythm: abnormal rhythm irregularly irregular Heart sounds: S1 normal heart sound present, S2 normal heart sound present, no click, no gallops, no murmurs and no rubs GI Inspection: Yes obesity Auscultation: normal bowel sounds Skin General skin exam: no rashes or lesions noted Neuro General: patient oriented x3 and no focal motor deficits Extrem General: No clubbing, No cyanosis and Yes edema (1+ below knee) Assessment & Plan Assessment & Plan (1) Chronic heart failure with preserved ejection fraction (HFpEF): Code(s): I50.32 - Chronic diastolic (congestive) heart failure Category: Medical Plan: Heart failure preserved ejection fraction in addition to chronic lung disease. Clinically she looks to be euvolemic and well compensated current diuretic regimen. She understands management of heart failure well. Advised daily weight monitoring avoidance of salt loading. Additional diuretics as need be. Continue aggressive rate control as below. Heart failure management discussed. No change in therapy at this point time. Encouraged to maintain activity level as tolerated. (2) Chronic atrial fibrillation: Code(s): I48.20 - Chronic atrial fibrillation, unspecified Category: Medical Plan: Chronic rate control atrial fibrillation, has failed rhythm control approach. Continue rate control with Cardizem and digoxin. Semi annual digoxin assay should be performed. Continue with full oral anticoagulation, currently on Eliquis 5 mg b.i.d.. Semi annual renal function test should be pursued. Will follow up in the clinic in 6 months time, sooner p.r.n.. Thank you for allowing me to partake in her care Medications: New digoxin 125 mcg PO ONCE 90 tabs 2RF Coding Level of Care Code Est Pt Level 4 (33938) Complex EM visit Add On G2211 Diagnoses Chronic heart failure with preserved ejection fraction (HFpEF) I50.32 Chronic atrial fibrillation I48.20
[2024-07-28 13:32] VITALS: BP 120/78; PULSE 72; BMI 33.4
== END 2024-07-28 15:51 | disposition home or self-care (01) ==
LOC: HO.HCS 13:02
PROVIDERS: PCP Internal Medicine; Visit Provider Internal Medicine Cardiovascular Disease
DX: I50.32 Chronic diastolic (congestive) heart failure (principal); I48.20 Chronic atrial fibrillation, unspecified
CPT/HCPCS: 99214; G2211

== ENCOUNTER → 2024-07-28 13:02 | Outpatient (BNVA) | payer MEDICARE, BC, SELFPAY | PROVIDERS: PCP Internal Medicine; Visit Provider Internal Medicine Cardiovascular Disease | DX: I50.32 Chronic diastolic (congestive) heart failure (principal); I48.20 Chronic atrial fibrillation, unspecified | CPT/HCPCS: 99212 ==

== ENCOUNTER 2024-12-08 12:56 | Outpatient (AMB) | payer MEDICARE, BC, SELFPAY ==
--- NOTE | 2024-12-08 13:14 | A.OFFVIS_ITS ---
Vital Signs 12/08/24 13:15 Height 5 ft 6 in Weight 201 lb 11.567 oz BMI 32.6 BP 110/80 Blood Pressure Location Lt brachial Position Sitting Pulse 87 Pulse Source Pulse Oximeter Pulse Oximetry (%) 96 Oxygen Delivery Method Room Air Intake Visit Reasons: Dyspnea Intake Note: pt is here for follow up and she feels great Appeals And Generalist Clerk Required: No Allergies No Known Allergies (No Known Allergies*) Allergy (Unverified 12/08/24 13:35) Medication List - Last Reconciled 12/08/24 by Jung Portillo MD albuterol sulfate 90 mcg/actuation 2 puffs inhalation Q4-6H PRN apixaban 5 mg PO BID digoxin 125 mcg PO ONCE diltiazem HCl CD 240 mg PO DAILY fluticasone propion-salmeterol 250-50 mcg/dose 1 ea PO BID furosemide 20 mg PO Q OTHER DAY PRN loratadine 10 mg PO DAILY PRN metoprolol succinate ER (Toprol XL) 100 mg PO DAILY 30 days lkpwwmctldlk-stgr-ucrof acid 18-400 mg-mcg (Centrum Women) 1 tab PO DAILY omega 2-lhq-egb-fish oil 60-90-500 mg (Fish Oil) 1 cap PO DAILY potassium chloride ER 10 mEq PO Q OTHER DAY PRN zolpidem 5 mg PO BEDTIME PRN Do you need a note to return to daycare/school/sports/work: No HPI HPI Dyspnea: Details: Lisbeth, 84 years old very pleasant female is here for her routine follow-up for COPD. She is doing very well and her breathing is much better since she has lost significant amount of weight. For the weight loss 1. She is on diuretic therapy, 2- she has strengthened her will power, and can control her appetite. She needs to use Wixela only once a day and she knows that if her symptoms get any worse she will go back to twice a day. She hardly needs to use albuterol. [facility] Medical History Asthma with COPD Restrictive lung disease Dyspnea on exertion HTN (hypertension) Chronic atrial fibrillation Chronic heart failure with preserved ejection fraction (HFpEF) Family History Father CVD (cerebrovascular disease) Mother No problems noted. Social History Patient Tobacco Use Status: Former Tobacco user Review of Systems Const All systems reviewed & are unremarkable except as noted in HPI and below Eyes Reports no additional complaints ENT Reports nasal congestion (Mild off and on) Card Denies chest pain, Reports irregular heart rhythm, Denies leg edema and Reports dyspnea on exertion Resp Reports as per HPI and Reports dyspnea on exertion GI Reports no additional complaints Reports no additional complaints Musc Reports no additional complaints Skin/Breast Reports system reviewed and no additional complaints, except as documented Neuro Reports no additional complaints Psych Reports no additional complaints Physical Exam Vital Signs: Last Vital Signs Pulse 87 12/08/24 13:15 BP 110/80 12/08/24 13:15 Pulse Ox 96 12/08/24 13:15 Oxygen Delivery Method Room Air 12/08/24 13:15 BMI result Body Mass Index 32.6 Const General: cooperative, comfortable, alert and awake Nutritional Appearance: obese Orientation/consciousness: patient oriented x3 Limitations: no limitations HEENT Head: Yes normal to inspection General nose exam: No nasal polyps present and No nasal discharge present Face and sinus: Yes sinuses nontender Mouth: oropharynx normal Throat: Yes posterior oropharynx normal Eyes General: appearance normal, both eyes and all related structures Neck Neck: Yes trachea midline, Yes supple and Yes no JVD Thyroid: Thyroid normal Chest Chest palpation & inspection: normal inspection of the chest, normal palpation of entire chest wall and no tenderness Resp Other: Percussion note is resonant, breath sounds are diminished on both sides especially over the basilar areas. No crepitations or wheezes are heard. Effort & Inspection: normal respiratory effort Auscultation: wheezes inspiratory wheezes Cardio Jugular venous distension: no JVD Palpation: normal PMI Rate: tachycardic Rhythm: abnormal rhythm irregularly irregular Heart sounds: S1 normal heart sound present, S2 normal heart sound present, no click, no gallops, no murmurs and no rubs GI Inspection: Yes obesity Palpation (GI): Soft to palpation, nontender, No hepatosplenomegaly present, no masses and Other GI palpation findings present (Abdomen slightly obese and protuberant) Auscultation: normal bowel sounds Back/Spine/Pelvis Thoracic/Lumbar Spine: thoracic and lumbar spine normal to inspection Skin General skin exam: no rashes or lesions noted Neuro General: patient oriented x3 and no focal motor deficits Cranial nerves: Yes CN's II-XII intact bilaterally Extrem General: No clubbing, No cyanosis and Yes edema (1+ below knee) Psych Appearance: grossly normal and well kempt Speech and movement: Normal speech and movement present Assessment & Plan Assessment & Plan (1) Asthma with COPD: Comment: Known to have Mild obstructive airway disorder, ( Asthma/Copd Overlap syndrome ) Stable , on current Med. Code(s): J44.9 - Chronic obstructive pulmonary disease, unspecified Category: Medical Plan: ADVISED TO USE WIXELA 250-51 INHALATION DAILY IN THE MORNING, AND USE. THE 2ND DOZE IN THE EVENING IF NEEDED ALBUTEROL HFA 2 PUFFS Q. 6 HOURS ONLY P.R.N. (2) Restrictive lung disease: Comment: Explained the patient about her restrictive disorder, most likely due to obesity. Now that she has lost significant amount of weight the restrictive pattern must be much better. Code(s): J98.4 - Other disorders of lung Category: Medical Plan: Keep reducing the weight slowly. Always do deep breathing exercises 2 to 3 times a day. (3) Dyspnea on exertion: Comment: Most likely secondary to restrictive pulmonary disorder, There is minimal small airway obstructive disorder which improves after bronchodilator therapy. The dyspnea on exertion is definitely improved. Code(s): R06.00 - Dyspnea, unspecified Category: Medical Plan: Advised to keep on using Wixela 250-51 inhalation at least in the morning and 2nd time as needed Continue deep breathing exercises 2 to 3 times a day Medications: Changed From potassium chloride ER with lasix 10 mEq PO Q OTHER DAY PRN To potassium chloride ER with lasix 10 mEq PO Q OTHER DAY PRN 30 tabs 1RF edema legs 30 days From furosemide 20 mg PO Q OTHER DAY PRN To furosemide 20 mg PO Q OTHER DAY PRN 30 tabs 1RF edema 30 days Coding Level of Care Code Est Pt Level 3 (10246) Diagnoses Asthma with COPD J44.9 Restrictive lung disease J98.4 Dyspnea on exertion R06.00
[2024-12-08 13:15] VITALS: BP 110/80; PULSE 87; O2SAT 96; BMI 32.6
--- OUTSIDE RECORDS SUMMARY | 2024-12-08 13:16 | XMS_ITS | Clinical Summary ---
Author Organization [facility] [employer] [facility] ity Address [address] [place] [address] Care Team Providers Care Wind Farm Engineer Name Role Phone Unavailable Primary Care Provider [...] Vaccines (1 of 2) 1988 RSV Immunization Adult Patie nts (1 - 1-dose 75+ series) 2013 Falls Risk Assessment 04/09/2022 Osteoporosis Screening (Bone Density Screening) 04/09/2022 Social Influencers of Health Screening 04/09/2022 COVID-19 Vaccine (1 - 2023-2 5 season) 2024 Depression Screening 05/07/2024 Influenza Vaccine (#1) 2025 HIB Vaccines Aged Out No longer eligi [...] age to complete this topic Meningococcal B Vaccine Aged Out No l onger eligible based on patient's age to complete this topic RSV Immunization Patients Un ashlie 20 months Aged Out No longer eligible b ased on patient's age to complete this topic Varicella Vaccines Aged Out No longer eligible based on patient's age to complete this topic
--- OUTSIDE RECORDS SUMMARY | 2024-12-08 13:16 | XMS_ITS | Clinical Summary ---
Author Organization [employer] Address [address] [facility] [address] [place] [address] Care Team Providers Care Hvac Lead Name Role Phone Unavailable Primary Care Provider Unavailabl e Immunizations Immunization Administration Dates Next Due Influenza, seasonal, injectable, [...] - 1-dose 75+ series) 2013 COVID-19 Vaccine ( - 2023-2 5 season) 2024 Influenza Vaccine (#1) 2025 01/23/2024 HIB Vaccines Aged Out No longer [...] age to complete this topic Insurance MEDICARE [facility] FED[employer]AL
== END 2024-12-08 13:35 | disposition home or self-care (01) ==
LOC: HO.HPS 12:57
PROVIDERS: PCP Internal Medicine; Visit Provider Internal Medicine
DX: J44.9 Chronic obstructive pulmonary disease, unspecified (principal); J98.4 Other disorders of lung; R06.00 Dyspnea, unspecified
CPT/HCPCS: 99213

== ENCOUNTER → 2024-12-08 12:56 | Outpatient (BNVA) | payer MEDICARE, BC, SELFPAY | PROVIDERS: PCP Internal Medicine; Visit Provider Internal Medicine | DX: J44.89 Other specified chronic obstructive pulmonary disease (principal); J98.4 Other disorders of lung; R06.09 Other forms of dyspnea | CPT/HCPCS: 99212 ==

== ENCOUNTER 2025-01-08 07:42 | Outpatient (REF) | payer MEDICARE, BC, SELFPAY ==
--- OUTSIDE RECORDS SUMMARY | 2025-01-08 07:46 | XMS_ITS | Clinical Summary ---
Author Organization [employer] Address [address] [facility] [address] [place] [address] Care Team Providers Care Hide Tanner Name Role Phone Unavailable Primary Care Provider [...] - 1-dose 75+ series) 2013 COVID-19 Vaccine (1 - 2023-2 5 season) 2025 Influenza Vaccine (#1) 2025 01/23/2024 HIB Vaccines [...] age to complete this topic Insurance MEDICARE [facility] FEDERAL
--- OUTSIDE RECORDS SUMMARY | 2025-01-08 07:46 | XMS_ITS | Clinical Summary ---
Author Organization [facility] [employer] [facility] ity Address [address] [place] [address] Care Team Providers Care Insurance Checker Name Role Phone Unavailable Primary Care Provider [...] 04/09/2022 Social Influencers of Health Screening 04/09/2022 Depression Screening 05/07/2024 COVID-19 Vaccine (1 - 2023-2 5 season) 2025 Influenza Vaccine (#1) 2025 HIB Vaccines Aged [...]
--- OUTSIDE RECORDS SUMMARY | 2025-01-08 07:46 | XMS_ITS | Patient Health Record ---
Author Organization [facility] Address [address] [place] [address] Care Team Providers Care Transcription Specialist Name Role Phone Frankie Cotton Unavailable [phone] Reason For Referral No Information Plan Of Treatment No Information
[2025-01-08 07:58] LABS: MANUAL DIFF FLAG NO
[2025-01-08 08:34] LABS: Hematocrit 45.1 % (37.0-47.0); Hemoglobin 14.7 g/dl (12.0-16.0); Imm Gran Abs Auto 0.06 X10*3/uL (0.00-0.03); Imm Gran Pct Auto 0.4 % (0.0-0.4); Lymphocytes Absolute Auto 2.6 X10*3/uL (1.2-4.9); Mean Corpuscular HGB Conc 32.6 g/dl (31.0-35.0); Mean Corpuscular Hemoglobin 30.6 pg (27.0-33.0); Mean Corpuscular Volume 93.8 fL (80.0-98.0); NRBC Abs Auto 0.000 X10*3/uL (0.0-0.012); NRBC Pct Auto 0.0 /100WBC (0.0-0.2); Platelet Count 285 X10*3/uL (160-400); Red Blood Count 4.81 X10*6/uL (4.20-5.50); White Blood Count 13.9 X10*3/uL (4.8-10.8)
[2025-01-08 08:41] LABS: Hemoglobin A1C 174.9598 umol/L; Total Hemoglobin (HGBA1C) 3870.6196 umol/L
[2025-01-08 09:07] LABS: Alanine Aminotransferase 25 U/L (0-31); Albumin Level 4.3 g/dL (3.5-5.0); Alkaline Phosphatase 93 U/L (39-117); Anion Gap 12 (12-20); Aspartate Amino Transferase 30 U/L (5-31); Blood Urea Nitrogen 19 mg/dL (9-16); Calcium 9.7 mg/dL (8.4-10.2); Carbon Dioxide 28 mmol/L (22-29); Chloride 105 mmol/L (96-108); Estimated Glomerular Filt Rate 47; Potassium 4.3 mmol/L (3.3-5.1); Sodium 141 mmol/L (135-145); Total Protein 7.6 g/dL (6.5-8.0)
[2025-01-08 09:09] LABS: Digoxin 0.7 ng/mL (0.8-2.0)
== END 2025-01-08 07:43 | disposition home or self-care (01) ==
LOC: HO.LAB 07:42
PROVIDERS: Visit Provider Internal Medicine
DX: I10 Essential (primary) hypertension (principal); I48.91 Unspecified atrial fibrillation; R73.01 Impaired fasting glucose; Z79.01 Long term (current) use of anticoagulants
CPT/HCPCS: 36415; 80053; 80162; 83036; 85025

== ENCOUNTER 2025-01-22 14:23 | Outpatient (AMB) | payer MEDICARE, BC, SELFPAY ==
--- NOTE | 2025-01-22 14:45 | MHC.OFFVIS ---
Vital Signs 01/22/25 14:48 Height 5 ft 6 in Weight 198 lb 6.656 oz BMI 32.0 BP 120/70 Blood Pressure Location Lt brachial Position Sitting Pulse 82 Intake Visit Reasons: 6 mth f/up Intake Note: 6 month follow-up with ekg Geospatial Applications Developer Required: No Allergies No Known Allergies (No Known Allergies*) Allergy (Unverified 12/08/24 13:35) Medication List - Last Reconciled 01/22/25 by Peng Lr MD albuterol sulfate 90 mcg/actuation 2 puffs inhalation Q4-6H PRN apixaban 5 mg PO BID digoxin 125 mcg PO ONCE diltiazem HCl CD 240 mg PO DAILY fluticasone propion-salmeterol 250-50 mcg/dose 1 ea PO BID furosemide 20 mg PO Q OTHER DAY PRN 30 days loratadine 10 mg PO DAILY PRN metoprolol succinate ER (Toprol XL) 100 mg PO DAILY 30 days xhpgmxuahxmb-dbgp-xnqkp acid 18-400 mg-mcg (Centrum Women) 1 tab PO DAILY omega 7-yke-qes-fish oil 60-90-500 mg (Fish Oil) 1 cap PO DAILY potassium chloride ER 10 mEq PO Q OTHER DAY PRN 30 days zolpidem 5 mg PO BEDTIME PRN HPI Comments Details: Lisbeth comes for follow-up. Was recently prescribed allergy pills and started noticing more congestion in his chest. She has notice some leg edema but says no worsening clear heart failure symptoms of orthopnea, PND. Continues to have exertional shortness of breath which is chronic. Denies any prolonged palpitation irregular heartbeat. Takes all her medications. No bleeding issues or neurologic events. Recent digoxin assay was within normal limits. [facility] Medical History Asthma with COPD Restrictive lung disease Dyspnea on exertion HTN (hypertension) Chronic atrial fibrillation Chronic heart failure with preserved ejection fraction (HFpEF) Family History Father CVD (cerebrovascular disease) Mother No problems noted. Social History Patient Tobacco Use Status: Former Tobacco user Review of Systems Const Denies chills, Denies fatigue, Denies fever(s), Denies frequent falls, Denies weakness, Denies weight gain and Denies weight loss ENT Denies dizziness Card Denies chest pain, Denies leg edema, Denies lightheadedness, Denies palpitations, Denies dyspnea, Denies dyspnea on exertion, Denies orthopnea and Denies other (loss of consciousness) Resp Denies cough, Denies dyspnea and Denies dyspnea on exertion GI Denies hematochezia and Denies change in stool character Musc Denies abnormal gait, Denies muscle weakness, Denies numbness, Denies radiating pain into limb and Denies tingling Neuro Denies abnormal gait, Denies dizziness, Denies frequent falls, Denies numbness, Denies tingling and Denies weakness Endo Denies fatigue and Denies palpitations Physical Exam Vital Signs: Last Vital Signs Pulse 82 01/22/25 14:48 BP 120/70 01/22/25 14:48 BMI result Body Mass Index 32.0 Const General: cooperative, comfortable, alert and awake Nutritional Appearance: obese Orientation/consciousness: patient oriented x3 Limitations: no limitations Neck Neck: Yes trachea midline, Yes supple and Yes no JVD (+ AJR) Resp Effort & Inspection: normal respiratory effort Auscultation: wheezes inspiratory wheezes Cardio Jugular venous distension: no JVD (+ AJR) Rate: tachycardic Rhythm: abnormal rhythm irregularly irregular Heart sounds: S1 normal heart sound present, S2 normal heart sound present, no click, no gallops, no murmurs and no rubs GI Inspection: Yes obesity Auscultation: normal bowel sounds Skin General skin exam: no rashes or lesions noted Neuro General: patient oriented x3 and no focal motor deficits Extrem General: No clubbing, No cyanosis and Yes edema (1+ below knee) Office Procedures EKG Details: EKG shows atrial fibrillation with incomplete right bundle-branch block with nonspecific ST-T changes most likely digoxin effect [id number]-[id number], Complete Assessment & Plan Assessment & Plan (1) Chronic heart failure with preserved ejection fraction (HFpEF): Code(s): I50.32 - Chronic diastolic (congestive) heart failure Category: Medical Plan: Heart failure preserved ejection fraction clinically appears to be mildly fluid overloaded. His symptoms of recent congestion might be related to heart failure. Discussed about taking diuretics in the next couple of days till she has improvement in his symptoms. She understands agrees. She is advised to seek emergency care for sudden worsening of her symptoms. Continue rate control approach. Daily weight monitoring avoidance salt loading was discussed. Diuretics as need be after that. She understands management well. (2) Chronic atrial fibrillation: Code(s): I48.20 - Chronic atrial fibrillation, unspecified Category: Medical Plan: Chronic atrial fibrillation has failed rhythm control approach. Currently on triple therapy with Cardizem, metoprolol as well as digoxin. Digoxin assay looks within acceptable limits. Should be followed every 6 months. Continue full oral anticoagulation, currently on Eliquis 5 mg b.i.d.. Semi annual renal function test should be obtained. Will follow up in the clinic in 6 months, sooner PRN. Thank you for allowing me to partake in his care Coding Level of Care Code Est Pt Level 4 (60838) Complex EM visit Add On G2211 Diagnoses Chronic heart failure with preserved ejection fraction (HFpEF) I50.32 Chronic atrial fibrillation I48.20 CPT Codes EKG - CPT: 63315-[id number], Complete ([id number])
[2025-01-22 14:48] VITALS: BP 120/70; PULSE 82; BMI 32.0
--- OUTSIDE RECORDS SUMMARY | 2025-01-22 16:11 | XMS_ITS | Clinical Summary ---
Author Organization [employer] Address [address] [facility] [address] [place] [address] Care Team Providers Care Pit Tanner Name Role Phone Unavailable Primary Care [...] age to complete this topic Insurance MEDICARE [facility] FEDERAL
--- OUTSIDE RECORDS SUMMARY | 2025-01-22 16:11 | XMS_ITS | Clinical Summary ---
Author Organization [facility] [employer] [facility] ity Address [address] [place] [address] Care Team Providers Care University Services Program Associate Name Role Phone Unavailable Primary Care Provider [...]
== END 2025-01-22 15:12 | disposition home or self-care (01) ==
LOC: HO.HCS 14:24
PROVIDERS: PCP Internal Medicine; Visit Provider Internal Medicine Cardiovascular Disease
DX: I50.32 Chronic diastolic (congestive) heart failure (principal); I48.20 Chronic atrial fibrillation, unspecified
CPT/HCPCS: 93010; 99214; G2211

== ENCOUNTER → 2025-01-22 14:23 | Outpatient (BNVA) | payer MEDICARE, BC, SELFPAY | PROVIDERS: PCP Internal Medicine; Visit Provider Internal Medicine Cardiovascular Disease | DX: I11.0 Hypertensive heart disease with heart failure (principal); I50.32 Chronic diastolic (congestive) heart failure; I48.20 Chronic atrial fibrillation, unspecified; I45.19 Other right bundle-branch block; R94.31 Abnormal electrocardiogram [ECG] [EKG] | CPT/HCPCS: 93005; 99212 ==